=== PATIENT | female | born 1955 | race Caucasian/White ===

== ENCOUNTER 2020-04-30 03:05 | Outpatient (CLI) | payer BC, SELFPAY ==
[2020-04-30 17:56] LABS: SARS-CoV-2 RNA PCR Negative
== END 2020-04-30 03:06 | disposition home or self-care (01) ==
LOC: ANHCOVIDDT 03:05
PROVIDERS: PCP Family Medicine; Visit Provider Otolaryngology
DX: Z01.812 Encounter for preprocedural laboratory examination (principal); Z11.59 Encounter for screening for other viral diseases
CPT/HCPCS: 87635; C9803; U0003

== ENCOUNTER 2020-04-30 09:43 | Outpatient (CLI) | payer BC, SELFPAY ==
--- NOTE | 2020-04-30 09:46 | ECG_ITS ---
Measurements Intervals [place] Rate: 64 P: 8 NE: 160 QRS: -8 QRSD: 92 T: 17 QT: 361 QTc: 373 Interpretive Statements SINUS RHYTHM POOR R WAVE PROGRESSION, ANTERIOR LEADS BASELINE ARTIFACT- I, II, III, AVR, AVL, AVF BORDERLINE ECG Electronically Signed On 04-30-2020 10:01:15 CDT by Evan Menjivar D.O.
== END 2020-04-30 09:44 | disposition home or self-care (01) ==
LOC: ANHSURGERY 09:46
PROVIDERS: PCP Family Medicine; Visit Provider Otolaryngology
DX: E78.00 Pure hypercholesterolemia, unspecified (principal); R94.31 Abnormal electrocardiogram [ECG] [EKG]
CPT/HCPCS: 93005

== ENCOUNTER 2020-05-02 02:50 | Day surgery (SDC) | payer BC, SELFPAY ==
[2020-04-23 17:06] VITALS: BMI 36.6
--- NOTE | 2020-04-30 10:50 | P.HP_ITS ---
History of Present Illness History of Present Illness Consent: Risks, benefits, and alternatives have been discussed and questions answered. Patient agrees to proceed with procedure. Chief complaint: Chronic Hoarseness Narrative: Magalys Jarvis is a 64 year old female she has been hoarse for a long period of time indirect examination indirect examination in the office revealed redness of the vocal cords and a possible v Review of Systems Review of Systems: All systems reviewed & are unremarkable except as noted in HPI and below PMFSH Social History Social History Smoking packs per day: 2 Smoking cigarettes per day: 40.0 Years smoked: 8 Smoking pack-years: 16.00 Smoking status: Former smoker Tobacco type: cigarettes Second hand tobacco smoke exposure: No Smoking end date: 08/22/85 Additional smoking assessment comments: smoked 2 packs a day for 8 years then up to 4 packs a day in the end Alcohol intake: current Substance use: never Spiritual care concerns: No Meds Home Medications and Allergies Home Medications Medication Instructions Recorded Confirmed Type omeprazole 40 mg capsule,delayed 40 mg PO DAILY #90 cap 12/10/19 04/23/20 Rx release atorvastatin 20 mg tablet 20 mg PO DAILY 01/08/20 04/23/20 History bupropion HCl 300 mg 24 hr tablet, 300 mg PO QAM 01/08/20 04/23/20 History extended release multivitamin 1 tablet PO DAILY 04/22/20 04/23/20 History diclofenac sodium 75 mg PO DAILY 04/23/20 04/23/20 History fluticasone propionate 1 spray NASAL Q12H PRN 04/23/20 04/23/20 History escitalopram oxalate 10 mg tablet 10 mg PO DAILY #90 tablet 04/28/20 Rx Allergies Allergy/AdvReac Type Severity Reaction Status Date / Time No Known Allergies Allergy Mild Verified 04/23/20 16:45 Assessment and Plan Additional Plan plan is a microlaryngoscopy and possible biopsy
--- NOTE | 2020-05-01 08:13 | P.PNAN_ITS ---
Anes - Initial Pre Proc Eval Procedure: Operation Date: 05/02/20 08:15 Proposed Procedures p Microlaryngoscopy With Biopsy - Mihai Vinson MD Date/Time: 05/01/20 08:13 Surgeon: Mihai Vinson MD Pre Op Diagnosis: Chronic Hoarseness Patient Data Age: 64 Gender: F Height: 1.57 m Weight: 90.72 kg Allergies Allergy/AdvReac Type Severity Reaction Status Date / Time No Known Allergies Allergy Mild Verified 05/02/20 07:39 Home Medications Medication Instructions Recorded Confirmed Type omeprazole 40 mg capsule,delayed 40 mg PO DAILY #90 cap 12/10/19 05/02/20 Rx release atorvastatin 20 mg tablet 20 mg PO DAILY 01/08/20 05/02/20 History bupropion HCl 300 mg 24 hr tablet, 300 mg PO QAM 01/08/20 05/02/20 History extended release multivitamin 1 tablet PO DAILY 04/22/20 05/02/20 History diclofenac sodium 75 mg PO DAILY 04/23/20 05/02/20 History fluticasone propionate 1 spray NASAL Q12H PRN 04/23/20 05/02/20 History escitalopram oxalate 10 mg tablet 10 mg PO DAILY #90 tablet 04/28/20 05/02/20 Rx Patient hx anesthesia problems: none Family hx anesthesia problems: none PMFSH Social History Social History Smoking packs per day: 2 Smoking cigarettes per day: 40.0 Years smoked: 8 Smoking pack-years: 16.00 Smoking status: Former smoker Tobacco type: cigarettes Second hand tobacco smoke exposure: No Smoking end date: 08/22/85 Additional smoking assessment comments: smoked 2 packs a day for 8 years then up to 4 packs a day in the end Alcohol intake: current Alcohol use details: rarely drink maybe 1 drink per month Substance use: never Living arrangements: with family Spiritual care concerns: No Anes - Eval Final PreProcedure Day of Procedure 05/01/20 08:13 Patient weight: obese Heart: regular rate and rhythm Lungs: clear to auscultation and normal air movement Airway: Mallampati scale class II Neurological: alert and oriented Last oral intake: >/= 8 hours ASA classification: III Emergent: no Anesthetic plan: proceed Anesthesia type and monitoring: general ETT and standard monitoring Informed Consent: The patient's anesthetic plan and its attendant risks and benefits were discussed with the patient/family/POA. Questions were solicited and answers provided to the satisfaction of the patient/family/POA.
[2020-05-02] VITALS (8 sets, daily range): BP systolic 105–147; BP diastolic 57–79; PULSE 58–83; RESP 12–20; TEMP 36.3–36.4; O2SAT 93–97
--- NOTE | 2020-05-02 06:13 | WPDHPUPDATE1 ---
History and Physical Update Update Date/Time: 05/02/20 06:13 History and Physical has been reviewed, including an updated exam of the patient. There are NO changes in the patient's condition. Risks, benefits, and alternatives have been discussed and questions answered. Patient agrees to proceed with procedure.
[2020-05-02] MEDS: LACTATED RINGERS 1,000 ML 30 ML IV CONT (07:19)
--- NOTE | 2020-05-02 08:28 | PM.PROC ---
Procedure Note - Detailed Date of procedure: 05/02/20 Pre-op diagnosis: Chronic Hoarseness Post-op diagnosis: same Procedure performed: Patient was prepped and draped in a fashion general anesthesia 6.5 endotracheal tube was placed for general anesthesia laryngoscope was inches into the level above the tube evaluation of the cords was almost impossible with a tube in place a a glide scope was brought in the tube was removed and the cords were examined found to be normal no evidence of any lesions were seen a photograph taken and the procedure terminated Description of procedure: patient Sineff General anesthesia the laryngoscope was attached to this level of the glottis and with a 6.[address] of the visualization of the cords was impossible the tube was removed the glide scope placed in the cords are perfectly normal lesions were seen procedure was terminated Anesthesia: GLMA Surgeon: Mihai Vinson MD Estimated blood loss (mL): 5 Drains: No Packing: No Pathology: none sent Complications: No immediate complications Condition: stable Disposition: PACU
== END 2020-05-02 10:08 | disposition home or self-care (01) ==
PROVIDERS: PCP Family Medicine; Visit Provider Otolaryngology
PROC: 0CJS8ZZ Inspection of Larynx, Via Natural or Artificial Opening Endoscopic (ICD-10-PCS; CPT 31575; principal; 2020-05-02 08:15)
DX: R49.0 Dysphonia (principal); K21.9 Gastro-esophageal reflux disease without esophagitis; E78.2 Mixed hyperlipidemia; E53.9 Vitamin B deficiency, unspecified; F33.9 Major depressive disorder, recurrent, unspecified; E66.9 Obesity, unspecified; Z68.36 Body mass index [BMI] 36.0-36.9, adult; Z87.891 Personal history of nicotine dependence; Z79.899 Other long term (current) drug therapy
CPT/HCPCS: 31575; A9270; J0330; J1100; J2250; J2405; J2704; J3010; J7120

== ENCOUNTER → 2020-07-16 14:17 | Outpatient (CLI) | payer BC, SELFPAY ==
--- NOTE | ~2020-07-16 | CT_ITS ---
EXAMINATION: CT soft tissue neck w con EXAM DATE: 07/16/2020 14:51 INDICATION: Vocal cord bowing. Hoarseness voice. TECHNIQUE: Spiral CT of the neck was performed following intravenous injection of 75 mL Omnipaque 350 . Axial, coronal and sagittal images were reviewed. The dose-length product (DLP) for this examinat ion was 399.30 mGy-cm. The exposure was tailored according to patient size (auto mA exposure control ), and iterative reconstruction (ASIR) was used as additional dose reduction technique. There is no prior study for comparison. FINDINGS: The left vocal cord is midline, suggesting it could be paralyzed. The airway is otherwise u nremarkable. There is no mass in the aortopulmonary window. The thyroid gland is unremarkable. The submandibular and parotid glands are symmetric. There is no cervical lymphadenopathy. There are n o masses identified. The superior mediastinum is unremarkable. Parapharyngeal and pre-glottic fa t planes are preserved. The opacified vasculature is patent. The orbits are unremarkable. Visua lized sinuses and mastoid air cells are well aerated. The lung apices are clear. There is severe a rthritic change at the left C1-2 lateral mass articulation. Moderate midcervical disc disease. IMPRESSION: Midline left vocal cord suggesting paralysis without underlying mass identified. Reviewed, dictated and finalized at location A. IMPRESSION: Midline left vocal cord suggesting paralysis without underlying ma ss identified.
[2020-07-16 14:42] LABS: Estimated Glomerular Filt Rate > 60
== END ==
DX: R49.0 Dysphonia (principal)
CPT/HCPCS: 70491; Q9967

== ENCOUNTER → 2021-10-15 07:52 | Outpatient (CLI) | payer BC, SELFPAY ==
--- NOTE | ~2021-10-15 | MR_ITS ---
EXAMINATION: MR shoulder RT wo con DATE: 10/15/2021 08:33 INDICATION: Impingement syndrome of the right shoulder. TECHNIQUE: Magnetic resonance imaging (MRI) of the right shoulder was performed without intravenous c ontrast. Sequences included axial PD-weighted FS FSE, coronal oblique PD-weighted FS FSE, coronal obl ique T2-weighted FS FSE, sagittal PD-weighted FS FSE, and sagittal T1-weighted SE. COMPARISON: None. FINDINGS: Coracoacromial arch: The acromion undersurface is curved in morphology (type II). Small anterior subacromial spur and smal l amount of heterotopic ossification along the acromial insertion of the mildly thickened coracoacrom ial ligament. Moderate acromioclavicular osteoarthritis. Rotator cuff: Mild supraspinatus tendinopathy with small full-thickness tear along the superior facet footplate whi ch measures 6 mm AP and medial collateral. Moderate infraspinatus tendinopathy without discrete tear. The teres minor tendon is normal. Mild subscapularis tendinopathy without tear. Normal rotator cuff muscle bulk and signal. Biceps tendon, glenoid labrum and glenohumeral cartilage: Long head of the biceps tendon is normal. Glenoid labrum is normal. Glenohumeral cartilage is normal. Fluid: Physiologic amount of fluid in the glenohumeral joint and biceps tendon sheath. No loose osteochondra l bodies. Small amount of fluid in the subacromial/subdeltoid bursa likely representing fluid from th e glenohumeral joint space decompressing through the full-thickness rotator cuff tear defect. Bones: Normal marrow signal with no edema, fracture or pathologic marrow replacing process. IMPRESSION: 1. Mild to moderate rotator cuff tendinopathy with small full-thickness tear at the distal supraspina tus tendon. 2. Moderate acromioclavicular osteoarthritis. Reviewed, dictated and finalized at location A. DING SERVICES SUPERVISOR IMPRESSION: 1. Mild to moderate rotator cuff tendinopathy with small full-thickness tear at the distal supraspinatus tendon. 2. Moderate acromioclavicular osteoarthritis.
== END ==
PROVIDERS: PCP Family Medicine; Visit Provider Physician Assistant Surgical
DX: M75.41 Impingement syndrome of right shoulder (principal); M75.121 Complete rotator cuff tear or rupture of right shoulder, not specified as traumatic; M19.011 Primary osteoarthritis, right shoulder
CPT/HCPCS: 73221

== ENCOUNTER 2021-11-19 10:09 | Outpatient (CLI) | payer BC, SELFPAY ==
--- NOTE | 2021-11-19 | ECG_ITS ---
Measurements Intervals [place] Rate: 60 P: 0 TN: 173 QRS: -11 QRSD: 89 T: 18 QT: 379 QTc: 382 Interpretive Statements SINUS RHYTHM DELAYED PRECORDIAL R/S TRANSITION LOW QRS VOLTAGE IN PRECORDIAL LEADS BASELINE ARTIFACT- I, II, III, AVR, AVL, AVF BORDERLINE ECG Electronically Signed On 11-19-2021 14:17:45 PROGRAM EVALUATION CONSULTANT by Evan Menjivar D.O.
== END 2021-11-19 10:10 | disposition home or self-care (01) ==
LOC: ANHSURGERY 10:14
PROVIDERS: PCP Family Medicine; Visit Provider Orthopaedic Surgery
DX: E78.00 Pure hypercholesterolemia, unspecified (principal); Z01.818 Encounter for other preprocedural examination; R94.31 Abnormal electrocardiogram [ECG] [EKG]
CPT/HCPCS: 93005

== ENCOUNTER 2021-11-25 00:57 | Day surgery (SDC) | payer BC, SELFPAY ==
[2021-11-14 12:49] VITALS: BMI 35.7
--- NOTE | 2021-11-14 13:11 | PC.NURSE ---
Report to the Outpatient Waiting Room, entrance under the green pavilion located off [facility], at time _1130_ on date _11/25/21_. OR Time: _1:30_. - You will be asked a series of questions to screen for COVID 19 for your protection. - A mask is required within the hospital. - No visitors are allowed at this time. Preoperative COVID Testing Requirements: NONE Patients may have clear liquids (water, carbonated beverages, clear teas, apple juice) until 3 hours prior to surgery (1030 AM) with a maximum of 20 ounces. - No food from midnight until time of surgery Take the following medications with a SIP of water the morning of surgery: _BUPROPION, ESCITALOPRAM, NASAL SPRAY__ Medications to discontinue per DR. RODRIGUEZ - _ASPIRIN, DICLOFENAC 7 DAYS PRIOR TO SURGERY, LAST DOSE TO BE TAKEN ON 11/17/21 - per ANESTHESIA - MULTIVITAMIN 3 DAYS PRIOR TO SURGERY, LAST DOSE TO BE TAKEN ON 11/21/21_ Please no make-up, nail maldivian, hairspray, perfume, deodorant, or body powder the day of surgery. No jewelry (including any body piercings) or valuables the day of surgery, leave them at home. Please take a shower or bath the night before, or the morning of, surgery with an antibacterial soap. Wear comfortable, loose fitting clothing. - Jewelry must be removed prior to entering the operating room. Rings and piercings that are not removed may be cut off. - The hospital will not accept responsibility for valuables. - Please leave all valuables, including medications, at home the day of surgery. If you are going home after surgery, a licensed ambulance driver paramedic must drive you home. - NO public transportation without another adult. - We recommend that an adult stay with you for 24 hours following discharge. - We also recommend that you do not drive, make important decision, drink alcoholic beverages, or take any drugs that were not prescribed by your health care provider for at least 24 hours after your discharge time. Follow any additional instructions given to you from your surgeon. Telephone instructions given to ____PT and asked if any additional questions and then verbalized understanding. Patient advised to call surgeon office or pre surgery nurse liaisonIGNACIA [phone] if any additional questions.
[2021-11-25] VITALS (9 sets, daily range): BP systolic 111–183; BP diastolic 66–99; PULSE 65–95; RESP 13–18; TEMP 36.1–36.9; O2SAT 93–99; BMI 35.2
--- NOTE | 2021-11-25 07:18 | WPDHPUPDATE1 ---
History and Physical Update Update Date/Time: 11/25/21 07:18 History and Physical has been reviewed, including an updated exam of the patient. There are NO changes in the patient's condition. Risks, benefits, and alternatives have been discussed and questions answered. Patient agrees to proceed with procedure.
--- NOTE | 2021-11-25 11:35 | W.PM.PROC2 ---
Procedure Note - Detailed Date of Procedure 11/25/21 Pre-op Diagnosis complete rot. cuff tear rt shoulder, impingement Post-op Diagnosis other Procedure Performed 1. Arthroscopic rotator cuff repair 2. Arthroscopic subacromial decompression Surgeon Fei Tello MD Advisory Services Associate Corazon Shannon PA-C Anesthesia general and regional ( interscalene block) Findings Full thickness crescent tear with mild retraction. Medium to large size. Two tunnel rip stop repair. Good tissue quality. Partial delaminating subscapularis tear also repaired. Description of Procedure Physician child nutrition assistant, Corazon Shannon PA-C, required for surgery; including patient positioning, draping, arthroscopic camera operation, maintaining instrument position, suture retrieval, wound closure, and dressing and sling placement. Preoperative antibiotics were given. An interscalene block was administered in the preoperative area. The patient was bought brought to the operating room. A general anesthetic was administered. The patient was carefully positioned in the beach chair position. The head and neck were carefully positioned. The non operative extremity was also carefully positioned. The shoulder was prepped and draped in the usual sterile fashion. Examination was performed. Standard posterior and anterior arthroscopic portals were established. Inflow achieved with the arthroscopic pump using saline and epinephrine. The glenohumeral joint was carefully inspected. There was a partial delaminating tear of the subscapularis. This was repaired using a single, double loaded, 2.8mm Piton anchor at the lesser tuberosity with simple sutures. The biceps showed degenerative fraying of the superior labrum and a Enterprise complex. Attention was turned to the subacromial space. A complete bursectomy was performed. The rotator cuff and footprint were lightly debrided. A modest acromioplasty was performed. The tear configuration was carefully assessed. At this point, 2 tunnels were created at the rotator cuff. The ArthroTunneler technique was utilized. Three sutures were passed through each tunnel. All sutures were then passed through the cuff tissue. The sutures were tied arthroscopically. The arthroscopic instruments were removed. The wounds were closed with 3-0 Monocryl subcuticular suture and steri strips. There were no complications. A sling was applied and the patient brought to the recovery room. Implants Piton metal suture anchor, Albert (Tornier). Estimated Blood Loss 10 Pathology none sent Complications No immediate complications Condition stable Disposition PACU
--- NOTE | 2021-11-25 11:54 | WPDANESEPPF ---
Anes - Initial Pre Proc Eval Procedure: Operation Date: 11/25/21 13:30 Proposed Procedures p Arthroscopic Rotator Cuff Repair Right Shoulder with Subacromial Decompression - Fei Tello MD Date/Time: 11/25/21 11:54 Surgeon: Fei Tello MD Pre Op Diagnosis: complete rot. cuff tear rt shoulder, impingement Patient Data Age: 66 Gender: F Height: 1.57 m Weight: 87.2 kg Last Vital Signs Temp 36.9 C 11/25/21 11:49 Pulse 79 11/25/21 11:49 Resp 18 11/25/21 11:49 BP 111/75 11/25/21 11:49 Pulse Ox 99 11/25/21 11:49 Allergies Allergy/AdvReac Type Severity Reaction Status Date / Time bee venom protein (honey bee) AdvReac Anaphylaxis Verified 11/25/21 11:51 Home Medications Medication Instructions Recorded Confirmed Type multivitamin 1 tablet PO QAM 04/22/20 11/25/21 History aspirin 81 mg tablet,delayed 81 mg PO QAM 01/06/21 11/25/21 History release bupropion HCl 150 mg 24 hr tablet, 150 mg PO QAM #30 tablet 06/22/21 11/25/21 Rx extended release fluticasone propionate 50 1 spray NASAL Q12H PRN #16 g 08/25/21 11/25/21 Rx mcg/actuation nasal spray,suspension diclofenac sodium 75 mg 75 mg PO BID #60 tablet 10/24/21 11/25/21 Rx tablet,delayed release atorvastatin 20 mg PO QAM 11/14/21 11/25/21 History epinephrine [EpiPen 2-Daryl] 0.3 mg IM ONCE PRN 11/14/21 11/25/21 History escitalopram oxalate 10 mg PO QAM 11/14/21 11/25/21 History omeprazole 40 mg PO QAM 11/14/21 11/25/21 History Patient hx anesthesia problems: none Family hx anesthesia problems: none Results Review: All pre-operative results and documents have been reviewed as part of the pre-operative evaluation. FORMERLY [facility], [facility] Past Medical History Medical History Ankle fracture GERD without esophagitis History of stress test Lumbar radiculopathy Mixed hyperlipidemia Obesity (BMI 30-39.9) Recurrent major depressive disorder, in partial remission Stung by yellow jacket Vitamin B deficiency Surgical History Surgical History History of bilateral tubal ligation History of laryngoscopy (~05/02/20) Hx of tonsillectomy Family History Family History Other Family history of lung cancer Social History Social History Smoking packs per day: 2 Smoking cigarettes per day: 40.0 Years smoked: 8 Smoking pack-years: 16.00 Smoking status: Former smoker Tobacco type: cigarettes Second hand tobacco smoke exposure: No Smoking end date: 08/22/85 Additional smoking assessment comments: smoked 2 packs a day for 8 years then up to 4 packs a day in the end Alcohol intake: current Alcohol use details: STATES MAYBE 1 DRINK/MONTH Substance use: never Substance use type: does not use Living arrangements: with family Spiritual care concerns: No Anes - Eval Final PreProcedure Day of Procedure 11/25/21 11:54 Patient weight: obese Heart: regular rate and rhythm Lungs: clear to auscultation Airway: Mallampati scale class II Neurological: alert and oriented Last oral intake: >/= 8 hours ASA classification: III Emergent: no Anesthetic plan: proceed Anesthesia type and monitoring: general ETT and standard monitoring Results Review: All pre-operative results and documents have been reviewed as part of the pre-operative evaluation. Informed Consent: The patient's anesthetic plan and its attendant risks and benefits were discussed with the patient/family/POA. Questions were solicited and answers provided to the satisfaction of the patient/family/POA.
[2021-11-25] MEDS: KETOROLAC 15 MG/ML VIAL (*BKC) IV PUSH (12:12)
[2021-11-25] MEDS: LACTATED RINGERS 1,000 ML 30 ML IV CONT ×2 (12:12→15:40)
[2021-11-25] MEDS: ACETAMINOPHEN 500 MG TABLET 1000 MG PO (12:12)
--- NOTE | 2021-11-25 13:29 | WPDANESPNB ---
Anes - Peripheral Nerve Block Date/Time: 11/25/21 13:29 I have discussed with the patient/family/POA the placement of a peripheral nerve block for post-operative pain management, including associated risks, benefits, complications, and side effects. Alternative methods of post-operative analgesia were detailed. Questions were solicited and answers provided to the satisfaction of the patient/family/POA. Time-Out: A pre-procedural Time-Out was completed immediately before starting the procedure and confirmed: Patient Identification, Site, Procedure, Patient Position and the Availability of Requisite Equipment. Clinical Indications: Acute post-operative pain management requested by the operative surgeon. Nerve Block Insertion Note Anes-nerve block: interscalene right Patient position: supine Needle: 22 gauge, stimulating, insulated echogenic needle. Needle length: 50 mm Technique: nerve stimulation lost at (mA) (0.4) and ultrasound Injectate: bupivacaine 0.5% with epi 5 mcg/ml (30) and dexamethasone (mg) (8) Observations: tolerated well Complications: none Procedure start time:: 1320 Procedure end time:: 132
[2021-11-25] MEDS: ceFAZolin 2 GM/D5W 50 ML 2 GM/50 ML BAG IVPB (13:31)
== END 2021-11-25 18:00 | disposition home or self-care (01) ==
PROVIDERS: PCP Family Medicine; Visit Provider Orthopaedic Surgery
PROC: (CPT 29805; principal; 2021-11-25 13:30)
DX: M75.121 Complete rotator cuff tear or rupture of right shoulder, not specified as traumatic (principal); M75.41 Impingement syndrome of right shoulder; G89.18 Other acute postprocedural pain; Z79.82 Long term (current) use of aspirin; K21.9 Gastro-esophageal reflux disease without esophagitis; E78.2 Mixed hyperlipidemia; E53.9 Vitamin B deficiency, unspecified; F33.41 Major depressive disorder, recurrent, in partial remission; Z87.891 Personal history of nicotine dependence; E66.9 Obesity, unspecified; Z68.35 Body mass index [BMI] 35.0-35.9, adult
CPT/HCPCS: 29827; 29826; 64415; A4565; A9270; C1713; J0330; J0690; J1100; J1885; J2250; J2370; J2405; J2704; J3010; J7120

== ENCOUNTER 2023-12-02 00:12 | Day surgery (SDC) | payer MEDICARE, SELFPAY ==
[2023-11-09 12:12] VITALS: BMI 34.9
--- NOTE | 2023-11-30 08:14 | SUR.PREOP ---
Patient called regarding upcoming procedure. Reviewed preop instructions, appointment times, and procedure prep.
--- NOTE | 2023-12-01 13:51 | PM.HPGS ---
History of Present Illness History of Present Illness Consent: Risks, benefits, and alternatives have been discussed and questions answered. Patient agrees to proceed with procedure. Chief complaint: Other fecal abnormalities Narrative: Magalys Jarvis is a 68 year old female Referred for colon cancer screening. Recent Cologuard test was positive. Her last colonoscopy was about 17 years ago. Review of Systems Review of Systems: All systems reviewed & are unremarkable except as noted in HPI and below PMFSH Past Medical History Medical History Ankle fracture GERD without esophagitis History of stress test Lumbar radiculopathy Mixed hyperlipidemia Obesity (BMI 30-39.9) Recurrent major depressive disorder, in partial remission Rotator cuff tear Stung by yellow jacket Vitamin B deficiency Surgical History Surgical History History of bilateral tubal ligation History of laryngoscopy (~05/02/20) Hx of tonsillectomy Family History Family History Other Family history of lung cancer Social History Social History Smoking packs per day: 2 Smoking cigarettes per day: 40.0 Years smoked: 8 Smoking pack-years: 16.00 Smoking status: Former smoker Tobacco type: cigarettes Second hand tobacco smoke exposure: No Smoking end date: 08/22/85 Additional smoking assessment comments: smoked 2 packs a day for 8 years then up to 4 packs a day in the end Alcohol intake: current Alcohol use details: STATES MAYBE 1 DRINK/MONTH Substance use: never Substance use type: does not use Lack of Transportation: No Lack of Food: Never True Current Housing: I Have Housing Concerned About Future Housing: No Difficulty Paying Gas/Electric Bills: No Difficulty Paying for Meds: No Currently Unemployed: No Education: High School Diploma/GED Difficulty w/ Childcare or Family Care: No Living arrangements: with family Occupation/Education: occupation Gender identity (if verbalized by the patient): Female Spiritual care concerns: No Agree to blood products: Yes Meds Home Medications and Allergies Home Medications Medication Instructions Recorded Confirmed Type multivitamin (Daily Multi-Vitamin 1 tablet PO QAM 04/22/20 11/09/23 History tablet) aspirin 81 mg tablet,delayed 81 mg PO QAM 01/06/21 11/09/23 History release (Adult Aspirin Regimen) cyclobenzaprine 10 mg tablet 10 mg PO TID PRN muscle spasm #60 12/02/22 11/09/23 Rx tabs epinephrine 0.3 mg/0.3 mL 0.3 mg (0.3 mL) IM ONCE PRN BEE 12/02/22 11/09/23 Rx injection, auto-injector (EpiPen STING #2 ea 2-Daryl) escitalopram oxalate 10 mg tablet 10 mg PO QAM #90 tabs 12/02/22 11/09/23 Rx atorvastatin 20 mg tablet 20 mg PO QAM #90 tabs 03/24/23 11/09/23 Rx fluticasone propionate 50 1 spray intranasal Q12H PRN 04/28/23 11/09/23 Rx mcg/actuation nasal allergies #16 grams spray,suspension bupropion HCl 300 mg 24 hr tablet, 300 mg PO QAM #90 tabs 06/27/23 11/09/23 Rx extended release omeprazole 40 mg capsule,delayed 40 mg PO QAM #90 caps 09/30/23 11/09/23 Rx release diclofenac sodium 75 mg 75 mg PO BID #60 tabs 10/29/23 11/09/23 Rx tablet,delayed release Allergies Allergy/AdvReac Type Severity Reaction Status Date / Time bee venom protein (honey bee) AdvReac Anaphylaxis Verified 12/02/23 06:39 Exam Resp: Auscultation: clear to auscultation bilaterally Cardio: Rate: regular rate Rhythm: regular rhythm GI: GI Palp: Yes Soft to palpation and No Tenderness to palpation present (GI) Assessment and Plan Assessment and plan (1) Colon cancer screening: Code(s): Z12.11 - Encounter for screening for malignant neoplasm of colon Status: Acute Assessment and Plan: [place]
[2023-12-02 06:40] VITALS: BP 131/80; PULSE 75; RESP 16; TEMP 36.2; O2SAT 100
[2023-12-02] MEDS: LACTATED RINGERS 1,000 ML 150 ML IV CONT (06:49)
--- NOTE | 2023-12-02 07:07 | WPDANESEPPF ---
Anes - Initial Pre Proc Eval Procedure: Operation Date: 12/02/23 08:00 Proposed Procedures p Colonoscopy - Luc Mckeon MD Date/Time: 12/02/23 07:07 Surgeon: Luc Mckeon MD Pre Op Diagnosis: Other fecal abnormalities Patient Data Age: 68 Gender: F Height: 1.55 m Weight: 82.7 kg Last Vital Signs Temp 36.2 C L 12/02/23 06:40 Pulse 75 12/02/23 06:40 Resp 16 12/02/23 06:40 BP 131/80 12/02/23 06:40 Pulse Ox 100 12/02/23 06:40 O2 Del Method Room Air 12/02/23 06:40 Allergies Allergy/AdvReac Type Severity Reaction Status Date / Time bee venom protein (honey bee) AdvReac Anaphylaxis Verified 12/02/23 06:39 Home Medications Medication Instructions Recorded Confirmed Type multivitamin (Daily Multi-Vitamin 1 tablet PO QAM 04/22/20 11/09/23 History tablet) aspirin 81 mg tablet,delayed 81 mg PO QAM 01/06/21 11/09/23 History release (Adult Aspirin Regimen) cyclobenzaprine 10 mg tablet 10 mg PO TID PRN muscle spasm #60 12/02/22 11/09/23 Rx tabs epinephrine 0.3 mg/0.3 mL 0.3 mg (0.3 mL) IM ONCE PRN BEE 12/02/22 11/09/23 Rx injection, auto-injector (EpiPen STING #2 ea 2-Daryl) escitalopram oxalate 10 mg tablet 10 mg PO QAM #90 tabs 12/02/22 11/09/23 Rx atorvastatin 20 mg tablet 20 mg PO QAM #90 tabs 03/24/23 11/09/23 Rx fluticasone propionate 50 1 spray intranasal Q12H PRN 04/28/23 11/09/23 Rx mcg/actuation nasal allergies #16 grams spray,suspension bupropion HCl 300 mg 24 hr tablet, 300 mg PO QAM #90 tabs 06/27/23 11/09/23 Rx extended release omeprazole 40 mg capsule,delayed 40 mg PO QAM #90 caps 09/30/23 11/09/23 Rx release diclofenac sodium 75 mg 75 mg PO BID #60 tabs 10/29/23 11/09/23 Rx tablet,delayed release Patient hx anesthesia problems: none Family hx anesthesia problems: none Results Review: All pre-operative results and documents have been reviewed as part of the pre-operative evaluation. [facility] Past Medical History Medical History Ankle fracture GERD without esophagitis History of stress test Lumbar radiculopathy Mixed hyperlipidemia Obesity (BMI 30-39.9) Recurrent major depressive disorder, in partial remission Rotator cuff tear Stung by yellow jacket Vitamin B deficiency Surgical History Surgical History History of bilateral tubal ligation History of laryngoscopy (~05/02/20) Hx of tonsillectomy Family History Family History Other Family history of lung cancer Social History Social History Smoking packs per day: 2 Smoking cigarettes per day: 40.0 Years smoked: 8 Smoking pack-years: 16.00 Smoking status: Former smoker Tobacco type: cigarettes Second hand tobacco smoke exposure: No Smoking end date: 08/22/85 Additional smoking assessment comments: smoked 2 packs a day for 8 years then up to 4 packs a day in the end Alcohol intake: current Alcohol use details: STATES MAYBE 1 DRINK/MONTH Substance use: never Substance use type: does not use Lack of Transportation: No Lack of Food: Never True Current Housing: I Have Housing Concerned About Future Housing: No Difficulty Paying Gas/Electric Bills: No Difficulty Paying for Meds: No Currently Unemployed: No Education: High School Diploma/GED Difficulty w/ Childcare or Family Care: No Living arrangements: with family Occupation/Education: occupation Gender identity (if verbalized by the patient): Female Spiritual care concerns: No Agree to blood products: Yes Anes - Eval Final PreProcedure Day of Procedure 12/02/23 07:07 Patient weight: obese Heart: regular rate and rhythm Lungs: clear to auscultation Airway: Mallampati scale class II Neurological: alert and oriented Last oral intake: >/= 8 hour
[2023-12-02 08:44] VITALS: BP 128/61; PULSE 74; RESP 17; O2SAT 100
[2023-12-02 08:54] VITALS: BP 139/72; PULSE 72; RESP 16; O2SAT 95
[2023-12-02 09:04] VITALS: BP 157/90; PULSE 69; RESP 15; O2SAT 100
== END 2023-12-02 09:09 | disposition home or self-care (01) ==
PROVIDERS: PCP Family Medicine; Visit Provider Internal Medicine Gastroenterology
PROC: 0DJD8ZZ Inspection of Lower Intestinal Tract, Via Natural or Artificial Opening Endoscopic (ICD-10-PCS; CPT 45378; principal; 2023-12-02 08:00)
DX: Z12.11 Encounter for screening for malignant neoplasm of colon (principal); R19.5 Other fecal abnormalities; K57.30 Diverticulosis of large intestine without perforation or abscess without bleeding; K21.9 Gastro-esophageal reflux disease without esophagitis; E78.2 Mixed hyperlipidemia; E53.9 Vitamin B deficiency, unspecified; Z87.891 Personal history of nicotine dependence
CPT/HCPCS: G0121; J2704; J7120

== ENCOUNTER 2024-03-08 09:35 | Outpatient (CLI) | payer MEDICARE, SELFPAY ==
--- NOTE | ~2024-03-08 | XR_ITS ---
Lumbosacral Spine: AP, oblique, and lateral views Clinical History: Pain COMPARISON: 11/10/2005 Findings: The normal lordotic curve is maintained. No fracture evident. 12 mm anterolisthesis of L4 o [place] L5 is present. There is moderate to advanced degenerative disc narrowing throughout the lumbar sp ine, worst at L4-L5. There is severe facet arthropathy from L3 through S1. There is moderate facet ar thropathy at the upper lumbar spine. The sacroiliac joints are normally outlined. Impression: Severe degenerative spondylosis, as above. 12 mm anterolisthesis of L4 over L5. Reviewed, dictated and finalized at location M. Impression: Severe degenerative spondylosis, as above. 12 mm anterolisthesis of L4 over L5.
== END 2024-03-08 09:36 ==
PROVIDERS: PCP Family Medicine; Visit Provider Family Medicine
DX: M47.896 Other spondylosis, lumbar region (principal); M43.16 Spondylolisthesis, lumbar region
CPT/HCPCS: 72110

== ENCOUNTER 2024-03-22 15:30 | Outpatient (CLI) | payer MEDICARE, SELFPAY ==
--- NOTE | ~2024-03-22 | US_ITS ---
RIGHT LOWER EXTREMITY VENOUS ULTRASOUND Ordering provider: Alexia Dewitt MD History: . M79.604 - Pain in right leg . Comparison: None. FINDINGS: --COMMON FEMORAL: Patent and free of thrombus. Normal compressibility, phasic flow and augmentation. --PROXIMAL SUPERFICIAL FEMORAL: Patent and free of thrombus. Normal compressibility, phasic flow and augmentation. --DISTAL SUPERFICIAL FEMORAL: Patent and free of thrombus. Normal compressibility, phasic flow and au gmentation. --POPLITEAL: Patent and free of thrombus. Normal compressibility, phasic flow and augmentation. --POSTERIOR TIBIAL: Patent and free of thrombus. Normal compressibility, phasic flow and augmentation . IMPRESSION: Negative right lower extremity venous US. No deep vein thrombosis. Reviewed, dictated and finalized at location A.
== END 2024-03-22 15:31 | disposition home or self-care (01) ==
PROVIDERS: PCP Family Medicine; Visit Provider Family Medicine
DX: M79.604 Pain in right leg (principal)
CPT/HCPCS: 93971

== ENCOUNTER 2024-03-29 08:31 | Outpatient (CLI) | payer MEDICARE, SELFPAY ==
--- NOTE | ~2024-03-29 | XR_ITS ---
EXAMINATION: XR hand RT min 3V, XR hand LT min 3V DATE: 03/29/2024 10:08 INDICATION: Osteoarthritis at the bilateral first carpal metacarpal joints TECHNIQUE: 1. Posteroanterior, oblique and lateral views of the left hand were obtained. 2. Posteroanterior, oblique and lateral views of the right hand were obtained. COMPARISON: None. FINDINGS: There is mild pulmonary subluxation at the bilateral second and third metacarpophalangeal joints. Ali gnment is otherwise normal. No fracture. There is polyarticular osteoarthritis at the bilateral hands and wrists, severe at the right third metacarpophalangeal joint and at the radioscaphoid articulatio n of the left wrist joint, moderate severity at the bilateral first carpal metacarpal, and right seco nd and left second and fourth metacarpophalangeal joints and at multiple interphalangeal joints with distal predominance. Mild osteoarthritis at the majority the remaining joints at the bilateral hands and wrists. There are multiple scattered juxta-articular lucencies with sclerotic margins most promin ent at the distal left radius and ulna, left scaphoid, bilateral lunate bones and at the head of the right third metacarpal. This could represent degenerative subchondral cysts or chronic erosions. Subt le chondrocalcinosis at the bilateral trigone fibrocartilage complex and at the bilateral third metac arpophalangeal joints. IMPRESSION: 1. Moderate to severe polyarticular osteoarthritis at the bilateral hands and wrists. The distributio n of the osteoarthritis with atypical predominance at the second and third metacarpophalangeal joints along with the presence of chondrocalcinosis and multiple chronic appearing erosions suggests possib ility of secondary osteoarthritis related to calcium pyrophosphate deposition (CPPD) disease. Reviewed, dictated and finalized at location B. IMPRESSION: 1. Moderate to severe polyarticular osteoarthritis at the bilateral hands and w rists. The distribution of the osteoarthritis with atypical predominance at the second and third metacarpophalangeal joints along with the presence of chondro calcinosis and multiple chronic appearing erosions suggests possibility of seco ndary osteoarthritis related to calcium pyrophosphate deposition (CPPD) disease .
== END 2024-03-29 08:32 | disposition home or self-care (01) ==
LOC: ANHIMG 08:33
PROVIDERS: Visit Provider Plastic Surgery
DX: M18.9 Osteoarthritis of first carpometacarpal joint, unspecified (principal); M19.041 Primary osteoarthritis, right hand; M19.042 Primary osteoarthritis, left hand; M19.031 Primary osteoarthritis, right wrist; M19.032 Primary osteoarthritis, left wrist
CPT/HCPCS: 73130

== ENCOUNTER 2024-04-17 14:55 | Outpatient (CLI) | payer MEDICARE, SELFPAY ==
--- NOTE | ~2024-04-17 | MR_ITS ---
MRI of the lumbar spine Clinical History: Radiculopathy Technique: Axial T2-weighted images, and sagittal T1-weighted, T2-weighted, and T2 fat-sat images wer e acquired. COMPARISON: 12/22/2016 Findings: Stable mild chronic loss of height of L1. No acute fracture seen. There is 5 mm retrolisthe sis of L1 over L2. There is 3 mm retrolisthesis of L2 over L3. There is 9 mm anterolisthesis of L4 ov er L5. No suspicious bone marrow signal abnormality seen. At L1-L2, there is advanced degenerative disc narrowing. There is mild disc bulge with moderate to ad vanced facet arthropathy. There is no destiny central canal stenosis. There is moderate to advanced frandy ateral neural foraminal narrowing. At L2-L3, there is advanced degenerative disc narrowing. There is diffuse disc bulge and severe facet arthropathy, with moderate to severe spinal canal stenosis/thecal sac compression. There is severe b ilateral neural foraminal compromise. At L3-L4, there is advanced degenerative disc narrowing. Disc bulge and severe facet arthropathy resu lt in severe spinal canal stenosis/thecal sac compression. There is severe right neural foraminal lila rowing, and moderate to severe left neural foraminal narrowing. At L4-L5, there is diffuse disc bulge/uncovering with severe facet arthropathy, which result in sever e spinal canal stenosis/thecal sac compression. There is severe bilateral neural foraminal compromise . At L5-S1, there is minimal disc bulge with severe facet arthropathy. No central canal stenosis. Neura l foramina are preserved. Paravertebral soft tissues are unremarkable. Impression: Severe degenerative spondylosis from L1 through L5, as detailed above. There is multilevel severe spi nal canal stenosis and advanced neural foraminal narrowing. 9 mm anterolisthesis of L5 over S1. 5 mm retrolisthesis of L1 over L2. 3 mm retrolisthesis of L2 over L3. Reviewed, dictated and finalized at location . Impression: Severe degenerative spondylosis from L1 through L5, as detailed above. There is multilevel severe spinal canal stenosis and advanced neural foraminal narrowin g. 9 mm anterolisthesis of L5 over S1. 5 mm retrolisthesis of L1 over L2. 3 mm retrolisthesis of L2 over L3.
== END 2024-04-17 14:56 ==
LOC: MICIMG 14:56
PROVIDERS: Visit Provider Family Medicine
DX: M51.36 Other intervertebral disc degeneration, lumbar region (principal); M48.061 Spinal stenosis, lumbar region without neurogenic claudication; M43.16 Spondylolisthesis, lumbar region; M43.17 Spondylolisthesis, lumbosacral region
CPT/HCPCS: 72148

== ENCOUNTER 2024-11-04 11:28 | Emergency (ER) | payer MEDICARE, SELFPAY ==
--- NOTE | ~2024-11-04 | US_ITS ---
EXAMINATION: US venous doppler LE RT DATE: 11/04/2024 12:43 INDICATION: Right lower limb pain. TECHNIQUE: Grayscale ultrasound images without and with compression and Doppler ultrasound images of the right lower extremity veins were obtained. COMPARISON: Ultrasound 03/22/2024 FINDINGS: The visualized portions of right common femoral vein, profunda (deep) femoral vein, femoral vein, pop liteal vein, peroneal veins, posterior tibial veins, and greater saphenous vein outflow are patent. IMPRESSION: 1. No deep venous thrombosis. Reviewed, dictated and finalized at location A. T PLEATER
--- NOTE | ~2024-11-04 | XR_ITS ---
EXAM: XR knee RT 3V DATE: 11/04/2024 14:25 HISTORY: posterior knee pain . COMPARISON: 05/03/2024, images only. FINDINGS: Normal mineralization. No fracture or dislocation. No lytic or blastic lesion. Tricompartm ental osteoarthritis, moderate-severe in the medial compartment. Small knee joint effusion. No erosio n or periosteal change. Soft tissues within normal limits. IMPRESSION: No acute osseous finding in the right knee. Reviewed, dictated and finalized at location K. RER SCREEN MEASURER AND TRIMMER
--- OUTSIDE RECORDS SUMMARY | 2024-11-04 11:31 | XMS_ITS | Clinical Summary ---
Author Organization [facility] Address [address] [place] [address] Care Team Providers Care Compliance Assistant Name Role Phone Alexia Dewitt MD Primary Care Provider [phone] Source Comments [facility],non-owned Affiliates and Associated Physician Practices is amultiple site organization consisting of ambulatory clinics and hospital sitesin [place], [place], [place] and [place]. This disclosure is being madepursuant to the Care Everywhere program and may not contain all information available regarding this patient. Last updated 18.[facility] Allergies No known active allergies Medications * Be aware that medications may not be up to date on this document. Alwaysverify current medications with the patient. Medication Sig Dispensed Refills Start Date End Date Status omeprazole (PRILOSEC) 40 MG capsule Take 40 mg by mouth once daily 06/16/2020 Active fluticasone propionate (FLONASE) 50 MCG/ACT nasal spray [place] 1 spray into each nostril 2 times daily 02/09/2020 Active escitalopram (LEXAPRO) 10 MG tablet Take 10 mg by mouth once daily 07/03/2020 Active atorvastatin (LIPITOR) 20 MG tablet Take 20 mg by mouth once daily 05/19/2020 Active buPROPion XL 24hr (WELLBUTRIN-XL) 300 MG tablet Take 300 mg by mouth once daily 06/12/2020 Active diclofenac sodium EC (VOLTAREN) 75 MG tablet Take 75 mg by mouth once daily 06/19/2020 Active Multiple Vitamins-Minerals (MULTIVITAMIN ADULTS 50+ PO) Take 1 tablet by mouth once daily Active nitrofurantoin monohyd macro crystals (MACROBID) 100 MG capsule Take 1 capsule by mouth 2 times daily 08/04/2020 Active Active Problems No known active problems Family History Medical History Relation Name Comments CAD (Coronary Artery Disease) Father Glaucoma Father Hemophilia Father Lung Disease Father Mesothelioma Thyroid Disease Father CAD (Coronary Artery Disease) Mother Cancer - Lung Mother Relation Name Status Comments Father Mother Social History Tobacco Use Types Packs/Day Years Used Date Smoking Tobacco: Former Cigarettes Q uit: 1982 Smokeless Tobacco: Never Alcohol Use Standard Drinks/Week Comments Yes 0 (1 standard drink = 0.6 oz pur e alcohol) social AUDIT-C Answer Date Recorded Q1: How often do you have a drink containing alc ohol? Monthly or less 07/04/2020 Average Number of Drinks Not on file 020 Frequency of Binge Drinking Not on file 10/2019 Sex and Gender Information Value Date Recorded Sex Assigned at Not on file Gender Identity Not on file Sexual Orientation Not on file Last Filed Vital Signs Vital Sign Reading Time Taken Comments Blood Pressure 135/70 11/14/2020 8:36 AM BOTTOM SPRAYER Pulse 65 11/14/2020 8:36 AM BOTTOM SPRAYER Temperature 36.8 ??C (98.2 ??F) 11/14/2020 8:36 AM CS T Respiratory Rate - - Oxygen Saturation 98% 03/22/2018 3:22 PM CDT Inhaled Oxygen Concentration - - Weight 86.2 kg (190 lb) 11/14/2020 8:36 AM BOTTOM SPRAYER Height 157.5 cm (5' 2 ) 11/14/2020 8:36 AM BOTTOM SPRAYER Body Mass Index 34.75 11/14/2020 8:36 AM BOTTOM SPRAYER Plan of Treatment Health Maintenance Due Date Last Done Comments BONE DENSITY TESTING 1955 COLOGUARD (AGES 45-75) - COL ON CA SCREENING 1956 COLON MONITORING 1956 COLONOSCOPY - COLON CA SCREENING 1956 CT COLONOGRAPHY - COLON CA SCREENING 1956 Colorectal Cancer Screening 1956 FIT - COLON CA SCREENING 1956 FLEX SIG - COLON CA SCREENING 1956 MAMMOGRAM 1956 HEPATITIS C SCREENING 04/28/1974 DTAP/TDAP/TD VACCINES (1 - Tdap) 1975 PNEUMOCOCCAL VACCINE 50+ (1 of 1 - PCV) 2006 ZOSTER VACCINE (1 of 2) 2006 SCREENING FOR DIABETES 03/22/2018 COVID-19 VACCINE (1 - 2023-2 5 season) 2024 INFLUENZA VACCINE (#1) 2024 DEPRESSION SCREENING 10/04/2024 Respiratory Syncytial Virus (RSV) Vaccine Pt: or over 60 yrs (1 - 1-dose 75+ series) 2031 HEPATITIS B VACCINE Aged Out No longe r eligible based on patient's age to complete this topic HIB VACCINE Aged Out No longer eligi ble based on patient's age to complete this topic HPV VACCINE Aged Out No longer eligi ble based on patient's age to complete this topic MENINGOCOCCAL (Group B) VACCINE Aged Out No longer eligible based on patient's age to complete this topic MENINGOCOCCAL VACCINE Aged Out No gabriele mono eligible based on patient's age to complete this topic Care Teams Compliance Assistant Relationship Specialty Start Date End Date Alexia Dewitt MD [address] [place], [place] [id number] PCP - General Family Medicine 03/22/18
--- OUTSIDE RECORDS SUMMARY | 2024-11-04 11:31 | XMS_ITS | Referral Summary ---
Author Organization [facility] Address [address] [place] [address] Care Team Providers Care Medicare Biller Name Role Phone Alexia Dewitt MD Primary Care Provider [phone] Source Comments [facility],non-owned Affiliates and Associated Physician Practices is amultiple site organization consisting of ambulatory clinics and hospital sitesin [place], [place], [place] and [place]. This disclosure is being madepursuant to the Care Everywhere program and may not contain all information available regarding this patient. Last updated 18.[facility] [employer] Allergies No known active allergies Medications * Be aware that medications may not be up to date on this document. Alwaysverify current medications with the patient. Medication Sig Dispensed Refills Start Date End Date Status omeprazole (PRILOSEC) 40 MG capsule Take 40 mg by mouth once daily 06/16/2020 Active fluticasone propionate (FLONASE) 50 MCG/ACT nasal spray [place] 1 spray into each nostril 2 times [...] Active Active Problems No known active problems Social History Tobacco Use Types Packs/Day Years Used Date Smoking Tobacco: Former Cigarettes Q uit: 1983 Smokeless Tobacco: Never Alcohol Use Standard Drinks/Week [...] Comments Blood Pressure 135/70 11/14/2020 8:36 AM ROBOTICS TECHNOLOGIST Pulse 65 11/14/2020 8:36 AM ROBOTICS TECHNOLOGIST Temperature 36.8 ??C (98.2 ??F) 11/14/2020 8:36 AM CS T Respiratory Rate - - Oxygen Saturation 98% 03/22/2018 3:22 PM CDT Inhaled Oxygen Concentration - - Weight 86.2 kg (190 lb) 11/14/2020 8:36 AM ROBOTICS TECHNOLOGIST Height 157.5 cm (5' 2 ) 11/14/2020 8:36 AM ROBOTICS TECHNOLOGIST Body Mass Index 34.75 11/14/2020 8:36 AM ROBOTICS TECHNOLOGIST Plan of Treatment Not on file Care Teams Medicare Biller Relationship Specialty Start Date End Date Alexia Dewitt MD [address] [place], [place] [id number] PCP - General Family Medicine 03/22/18
--- OUTSIDE RECORDS SUMMARY | 2024-11-04 11:31 | XMS_ITS | Patient Health Summary ---
Author Organization [facility] Address [address] [address] Care Team Providers Care Multigraph Operator Name Role Phone Alexia Dewitt MD Primary Care Provider [phone] Note from [facility],non-owned Affiliates and Associated Physician Practices is amultiple site organization consisting of ambulatory clinics and hospital sitesin [place], [place], [place] and [place]. This disclosure is being madepursuant to the Care Everywhere program and may not contain all information available regarding this patient. Last updated 18.[facility] Allergies No known active allergies Medications * Be aware that medications may not be up to date on this document. Alwaysverify current medications with the patient. * omeprazole (PRILOSEC) 40 MG capsule(Started 06/16/2020) Take 40 mg by mouth once daily * fluticasone propionate (FLONASE) 50 MCG/ACT nasal spray(Started 02/09/2020) [place] 1 spray into each nostril 2 times daily * escitalopram (LEXAPRO) 10 MG tablet(Started 07/03/2020) Take 10 mg by mouth once daily * atorvastatin (LIPITOR) 20 MG tablet(Started 05/19/2020) Take 20 mg by mouth once daily * buPROPion XL 24hr (WELLBUTRIN-XL) 300 MG tablet(Started 06/12/2020) Take 300 mg by mouth once daily * diclofenac sodium EC (VOLTAREN) 75 MG tablet(Started 06/19/2020) Take 75 mg by mouth once daily * Multiple Vitamins-Minerals (MULTIVITAMIN ADULTS 50+ PO) Take 1 tablet by mouth once daily * nitrofurantoin monohyd macro crystals (MACROBID) 100 MG capsule(Started 08/04/2020) Take 1 capsule by mouth 2 times daily Active Problems No known active problems Social [...] Comments Blood Pressure 135/70 11/14/2020 8:36 AM INDUSTRIAL MAINTENANCE INSTRUCTOR Pulse 65 11/14/2020 8:36 AM INDUSTRIAL MAINTENANCE INSTRUCTOR Temperature 36.8 ??C (98.2 ??F) 11/14/2020 8:36 AM CS T Respiratory Rate - - Oxygen Saturation 98% 03/22/2018 3:22 PM CDT Inhaled Oxygen Concentration - - Weight 86.2 kg (190 lb) 11/14/2020 8:36 AM INDUSTRIAL MAINTENANCE INSTRUCTOR Height 157.5 cm (5' 2 ) 11/14/2020 8:36 AM INDUSTRIAL MAINTENANCE INSTRUCTOR Body Mass Index 34.75 11/14/2020 8:36 AM INDUSTRIAL MAINTENANCE INSTRUCTOR Procedures * MA LARYNGOSCOPY,FLEX FIBER,DIAGNOSTIC(Performed 11/14/2020) Performed for Vocal cord bowing * MA LARYNGOSCOPY,INDIRECT,DX(Performed 08/08/2020) Performed for Vocal cord bowing * SARS-COV-2 (COVID-19) IN HOUSE(Performed 07/24/2020) Performed for Pre-op testing * MA LARYNGOSCOPY,FLEX FIBER,DIAGNOSTIC(Performed 07/04/2020) Performed for Hoarseness of voice Results * MA LARYNGOSCOPY,FLEX FIBER,DIAGNOSTIC (11/14/2020 8:56 AM INDUSTRIAL MAINTENANCE INSTRUCTOR) Narrative Betito Townsend MD - 11/14/2020 8:56 AM INDUSTRIAL MAINTENANCE INSTRUCTOR Betito Townsend MD ? 11/14/2020 ??9:07 AM Procedure Note Endoscopy Endoscopy Type: ??Laryngoscopy without stroboscopy 16834 Endoscope: Flexible 4mm Scope Anesthesia: Lidocaine 2% and Neosynephrine 1/2% (nasal) Procedure Details: The patient was sitting upright in a chair with the head in a slightly anterior sniffing position. The topical anesthesia was administered and then adequate time was allowed ??for an anesthetic effect. The endoscope was passed thru the nasal cavity with the tongue retracted anteriorly. The tip of the endoscope was positioned in the oropharynx which allowed a complete view of the base of tongue, vallecula, pyriform recesses, epiglottis, bilateral true and false vocal folds, the interarytenoid and post cricoid region, and the immediate subglottis. Findings: vocal cords move normally through the full range of motion. Thecords approximate well with no bowing. A symmetric mucosal wave. Condition: Stable. ??The patient tolerated this procedure with minimal to no discomfort. Complications: None I was present for the entirety of the procedure. Betito Townsend MD PROCEDURE/MINOR SURG ICAL ORDERABLES * MA LARYNGOSCOPY,INDIRECT,DX (08/08/2020 10:57 AM INDUSTRIAL MAINTENANCE INSTRUCTOR) Narrative Fatmata Carlisle - 08/08/2020 10:57 AM INDUSTRIAL MAINTENANCE INSTRUCTOR Fatmata Carlisle ? 08/08/2020 12:07 PM See procedure note in the progress note from this date. Betito Townsend MD PROCEDURE/MINOR SURG ICAL ORDERABLES * SARS-COV-2 (COVID-19) PRE-SURGICAL/PROCEDURE (07/24/2020 12:43 PM CDT) COVID-19 PCR Not detected Not detected 07/24/2020 7:26 PM CDT [facility] Microbiology SPECIMEN FROM NASOPHARYNGEAL STRUCTURE / Unknown Collection / Unknown 07/24/2020 12:43 PM CDT 07/24/2020 12:43 PM CDT Narrative [facility] - 07/24/2020 7:26 PM CDT This nucleic acid amplification assay performance was validated by [facility]. This test has been authorized by the Food and Drug administration (FDA)under an Emergency??Use Authorization (EUA). This test has been validated in accordance with the FDA's guidance document Policy for Diagnostic Testing in Laboratories Certified to perform High Complexity Testing under CLIA prior to Emergency Use Authorization for Coronavirus Disease-2019 during the Public Health Emergency issued on December 02, 2019. FDA independent review of this validation is pending. This test is only authorized for the duration of time the declaration that circumstances exist justifying the authorization of emergency use of in vitro diagnostic tests for detection of SARS-CoV-2 virus and/or diagnosis of COVID-19 infection under section 564(b)(1) of the Act, 21 U.S.C 360bbb-3 (b)(1), unless the authorization is terminated or revoked sooner. Fact Sheets for this EUA assay are available upon request. Betito Townsend MD LAB - MICROBIOLOGY O RDERABLES [facility] [address] [place], [place] [address], [facility] [phone] * MA LARYNGOSCOPY,FLEX FIBER,DIAGNOSTIC (07/04/2020 12:08 PM CDT) Narrative Fatmata Carlisle - 07/04/2020 12:08 PM CDT Fatmata Carlisle ? 07/04/2020 ??2:38 PM See procedure note in the progress note from this date. Betito Townsend MD PROCEDURE/MINOR SURG ICAL ORDERABLES Care Teams Multigraph Operator Relationship Specialty Start Date End Date Alexia Dewitt MD [address] [place] [address] PCP - General Family Medicine 03/22/18
[2024-11-04 11:59] VITALS: BP 109/73; PULSE 88; RESP 20; TEMP 36.6; O2SAT 100
--- OUTSIDE RECORDS SUMMARY | 2024-11-04 13:08 | XMS_ITS | Clinical Summary ---
Author Organization [facility] [employer] Address [address] [facility] [place] [address] Care Team Providers Care Dining Room Hostess Name Role Phone Alexia Dewitt MD Primary Care Provider [phone] Source Comments [facility],non-owned Affiliates and Associated Physician Practices is amultiple site organization consisting of ambulatory clinics and hospital sitesin [place], [place], [place] and [place]. This disclosure is being madepursuant to the Care Everywhere program and may not contain all information available regarding this patient. Last updated 18.[facility] [employer] Allergies No known active allergies Medications * Be aware that medications may not be up to date on this document. Alwaysverify current medications with the patient. Medication Sig Dispensed Refills Start Date End Date Status omeprazole (PRILOSEC) 40 MG capsule Take 40 mg by mouth once daily 06/16/2020 Active fluticasone propionate (FLONASE) 50 MCG/ACT nasal spray [place] 1 spray into each nostril 2 times [...] Comments Blood Pressure 135/70 11/14/2020 8:36 AM CONSTRUCTION SECRETARY Pulse 65 11/14/2020 8:36 AM CONSTRUCTION SECRETARY Temperature 36.8 ??C (98.2 ??F) 11/14/2020 8:36 AM CS T Respiratory Rate - - Oxygen Saturation 98% 03/22/2018 3:22 PM CDT Inhaled Oxygen Concentration - - Weight 86.2 kg (190 lb) 11/14/2020 8:36 AM CONSTRUCTION SECRETARY Height 157.5 cm (5' 2 ) 11/14/2020 8:36 AM CONSTRUCTION SECRETARY Body Mass Index 34.75 11/14/2020 8:36 AM CONSTRUCTION SECRETARY Plan of Treatment Health Maintenance Due Date [...] age to complete this topic Care Teams Dining Room Hostess Relationship Specialty Start Date End Date Alexia Dewitt MD [address] [place], [place] [id number] PCP - General Family Medicine 03/22/18
--- OUTSIDE RECORDS SUMMARY | 2024-11-04 13:08 | XMS_ITS | Patient Health Summary ---
Author Organization [facility] Address [address] [place] [address] Care Team Providers Care Geophysical Computer Name Role Phone Alexia Dewitt MD Primary Care Provider [phone] Note from [facility],non-owned Affiliates and Associated Physician Practices is amultiple site organization consisting of ambulatory clinics and hospital sitesin [place], [place], [place] and [place]. This disclosure is being madepursuant to the Care Everywhere program and may not contain all information available regarding this patient. Last updated 18.[facility] Allergies No known active allergies Medications * Be aware that medications may not be up to date on this document. Alwaysverify current medications with the patient. * omeprazole (PRILOSEC) 40 MG capsule(Started 06/16/2020) Take 40 mg by mouth once daily * fluticasone propionate (FLONASE) 50 MCG/ACT nasal spray(Started 02/09/2020) [place] 1 spray into each nostril 2 times [...] Comments Blood Pressure 135/70 11/14/2020 8:36 AM GEOLOGICAL MANAGER Pulse 65 11/14/2020 8:36 AM GEOLOGICAL MANAGER Temperature 36.8 ??C (98.2 ??F) 11/14/2020 8:36 AM CS T Respiratory Rate - - Oxygen Saturation 98% 03/22/2018 3:22 PM CDT Inhaled Oxygen Concentration - - Weight 86.2 kg (190 lb) 11/14/2020 8:36 AM GEOLOGICAL MANAGER Height 157.5 cm (5' 2 ) 11/14/2020 8:36 AM GEOLOGICAL MANAGER Body Mass Index 34.75 11/14/2020 8:36 AM GEOLOGICAL MANAGER Procedures * MD LARYNGOSCOPY,FLEX FIBER,DIAGNOSTIC(Performed 11/14/2020) Performed for Vocal cord bowing * MD LARYNGOSCOPY,INDIRECT,DX(Performed 08/08/2020) Performed for Vocal cord bowing * SARS-COV-2 (COVID-19) IN HOUSE(Performed 07/24/2020) Performed for Pre-op testing * MD LARYNGOSCOPY,FLEX FIBER,DIAGNOSTIC(Performed 07/04/2020) Performed for Hoarseness of voice Results * MD LARYNGOSCOPY,FLEX FIBER,DIAGNOSTIC (11/14/2020 8:56 AM GEOLOGICAL MANAGER) Narrative Betito Townsend MD - 11/14/2020 8:56 AM GEOLOGICAL MANAGER Betito Townsend MD ? 11/14/2020 ??9:07 AM Procedure Note Endoscopy Endoscopy Type: ??Laryngoscopy without stroboscopy 12032 Endoscope: Flexible 4mm Scope Anesthesia: Lidocaine 2% [...] Townsend MD PROCEDURE/MINOR SURG ICAL ORDERABLES * MD LARYNGOSCOPY,INDIRECT,DX (08/08/2020 10:57 AM GEOLOGICAL MANAGER) Narrative Fatmata Carlisle - 08/08/2020 10:57 AM GEOLOGICAL MANAGER Fatmata Carlisle ? 08/08/2020 12:07 PM See procedure note in the progress note from this date. Betito Townsend MD PROCEDURE/MINOR SURG ICAL ORDERABLES * SARS-COV-2 (COVID-19) PRE-SURGICAL/PROCEDURE (07/24/2020 12:43 PM CDT) COVID-19 PCR Not detected Not detected 07/24/2020 7:26 PM CDT [facility] Microbiology SPECIMEN FROM NASOPHARYNGEAL STRUCTURE / Unknown Collection / Unknown 07/24/2020 12:43 PM CDT 07/24/2020 12:43 PM CDT Narrative [facility] - 07/24/2020 7:26 PM CDT This nucleic acid amplification assay performance was validated by [facility]. This test has been authorized [...] Townsend MD LAB - MICROBIOLOGY O RDERABLES [facility] [address] [place], [place] [address], [facility] [phone] * MD LARYNGOSCOPY,FLEX FIBER,DIAGNOSTIC (07/04/2020 12:08 PM CDT) Narrative Fatmata Carlisle - 07/04/2020 12:08 PM CDT Fatmata Carlisle ? 07/04/2020 ??2:38 PM See procedure note in the progress note from this date. Betito Townsend MD PROCEDURE/MINOR SURG ICAL ORDERABLES Care Teams Geophysical Computer Relationship Specialty Start Date End Date Alexia Dewitt MD [address] [place] [address] PCP - General Family Medicine 03/22/18
--- OUTSIDE RECORDS SUMMARY | 2024-11-04 13:08 | XMS_ITS | Referral Summary ---
Author Organization [facility] Address [address] [facility] [address] [facility] [place] [address] Care Team Providers Care Supervisor Detasseling Crew Name Role Phone Alexia Dewitt MD Primary Care Provider [phone] Source Comments [facility],non-owned Affiliates and Associated Physician Practices is amultiple site organization consisting of ambulatory clinics and hospital sitesin [place], [place], [place] and [place]. This disclosure is being madepursuant to the Care Everywhere program and may not contain all information available regarding this patient. Last updated 18.[facility] Allergies No known active allergies Medications * Be aware that medications may not be up to date on this document. Alwaysverify current medications with the patient. Medication Sig Dispensed Refills Start Date End Date Status omeprazole (PRILOSEC) 40 MG capsule Take 40 mg by mouth once daily 06/16/2020 Active fluticasone propionate (FLONASE) 50 MCG/ACT nasal spray [place] 1 spray into each nostril 2 times [...] Comments Blood Pressure 135/70 11/14/2020 8:36 AM ENGINE HEAD REPAIRER Pulse 65 11/14/2020 8:36 AM ENGINE HEAD REPAIRER Temperature 36.8 ??C (98.2 ??F) 11/14/2020 8:36 AM CS T Respiratory Rate - - Oxygen Saturation 98% 03/22/2018 3:22 PM CDT Inhaled Oxygen Concentration - - Weight 86.2 kg (190 lb) 11/14/2020 8:36 AM ENGINE HEAD REPAIRER Height 157.5 cm (5' 2 ) 11/14/2020 8:36 AM ENGINE HEAD REPAIRER Body Mass Index 34.75 11/14/2020 8:36 AM ENGINE HEAD REPAIRER Plan of Treatment Not on file Care Teams Supervisor Detasseling Crew Relationship Specialty Start Date End Date Alexia Dewitt MD [address] [place], [place] [id number] PCP - General Family Medicine 03/22/18
--- NOTE | 2024-11-04 13:46 | ED.GENADULT ---
HPI - General Adult General Chief complaint: Extremity Problem,Nontraumatic Stated complaint: R LEG PAIN NO INJURY Time Seen by Provider: 11/04/24 12:58 History of Present Illness HPI narrative: 69-year-old female presented to the emergency department for evaluation for right posterior knee pain. Patient states the pain has been bothering her intermittently over the last few weeks. Patient does report a prior history of low back pain with pain that manifests as knee pain. Patient also has history of osteoarthritis.. Patient the falls or injuries. Related Data Home Medications ?Medication ?Instructions ?Recorded ?Confirmed ?Last Taken ?Type aspirin 81 mg tablet,delayed 81 mg PO QAM 01/06/21 09/20/24 11/18/21 History release (Adult Aspirin Regimen) Allergies Allergy/AdvReac Type Severity Reaction Status Date / Time bee venom protein (honey bee) AdvReac Anaphylaxis Verified 11/04/24 12:09 Review of Systems Review of Systems: All systems reviewed & are unremarkable except as noted in HPI and below PMFSH Past Medical History Medical History Rotator cuff tear History of stress test Stung by yellow jacket Obesity (BMI 30-39.9) Ankle fracture GERD without esophagitis Lumbar radiculopathy Mixed hyperlipidemia Recurrent major depressive disorder, in partial remission Vitamin B deficiency Surgical History Surgical History History of laryngoscopy (~05/02/20) Hx of tonsillectomy History of bilateral tubal ligation Family History Family History Other Family history of lung cancer Social History Social History Smoking packs per day: 2 Smoking cigarettes per day: 40.0 Years smoked: 8 Smoking pack-years: 16.00 Smoking status: Former smoker Tobacco type: cigarettes Second hand tobacco smoke exposure: No Smoking end date: 08/22/85 Additional smoking assessment comments: smoked 2 packs a day for 8 years then up to 4 packs a day in the end Alcohol intake: current Alcohol use details: STATES MAYBE 1 DRINK/MONTH Substance use: never Substance use type: does not use Do You Feel Safe in your Home?: Yes Lack of Transportation: No Lack of Food: Never True Current Housing: I Have Housing Concerned About Future Housing: No Difficulty Paying Gas/Electric Bills: No Difficulty Paying for Meds: No Currently Unemployed: No Education: High School Diploma/GED Difficulty w/ Childcare or Family Care: No Living arrangements: with family Occupation/Education: occupation Gender identity (if verbalized by the patient): Female Spiritual care concerns: No Agree to blood products: Yes Exam Narrative: APPEARANCE: Well appearing, no pain, no distress, well-nourished. HEAD: normocephalic, atraumatic. EYES: PERRLA/EOMI, conjunctivae clear. NOSE: Normal no drainage EARS:TMS clear with good light reflex. THROAT: Pharynx clear, no exudate. NECK: Supple. No adenopathy, no masses. RESPIRATORY: Airway patent, respirations nonlabored. Clear to auscultation bilaterally, no rales, rhonchi, wheezing. CARDIOVASCULAR: Regular rate and rhythm without murmurs rubs or gallops. ABDOMINAL: Soft, nontender, nondistended, normal bowel sounds MUSCULOSKELETAL: Reproducible posterior right knee tenderness to palpation with no evidence cellulitis or shingles NEURO: Alert. Cranial nerves II through XII intact. Grossly intact SKIN: Warm, dry. Normal Color Course Vital Signs Vital signs: Vital Signs Temperature 97.8 F 11/04/24 11:59 Pulse Rate 88 11/04/24 11:59 Respiratory Rate 20 11/04/24 11:59 Blood Pressure 109/73 11/04/24 11:59 Pulse Oximetry 100 11/04/24 11:59 Temperature 97.8 F 11/04/24 11:59 Pulse Rate 88 11/04/24 11:59 Respiratory Rate 20 11/04/24 11:59 Blood Pressure 109/73 11/04/24 11:59 Pulse Oximetry 100 11/04/24 11:59 Medical Decision Making MDM Narrative Medical decision making narrative: 69-year-old female presents emergency department for evaluation for right posterior knee pain. Exam was concerning popliteal cyst. Ultrasound was negative for DVT. X-ray was negative for acute fracture dislocation. Patient will be provided medication for pain control. Patient was courage have close follow-up with Orthopedics. All questions concerns were addressed. Differential Diagnosis Differential Diagnosis: Knee fracture, knee contusion, DVT, Mckeon cyst Vital Signs Vital Signs: Vital Signs Temperature 97.8 F 11/04/24 11:59 Pulse Rate 88 11/04/24 11:59 Respiratory Rate 20 11/04/24 11:59 Blood Pressure 109/73 11/04/24 11:59 Pulse Oximetry 100 11/04/24 11:59 Temperature 97.8 F 11/04/24 11:59 Pulse Rate 88 11/04/24 11:59 Respiratory Rate 20 11/04/24 11:59 Blood Pressure 109/73 11/04/24 11:59 Pulse Oximetry 100 11/04/24 11:59 Imaging Data Radiologist's impression: Impressions Venous Doppler Study 11/04/24 12:51 IMPRESSION: 1. No deep venous thrombosis. Knee X-Ray 11/04/24 14:25 IMPRESSION: No acute osseous finding in the right knee. Discharge Plan Discharge Clinical Impression: Posterior knee pain Patient Disposition: Home, Self-Care Condition: Stable Instructions: Antibiotic Form, Mckeon Cyst (ED) Additional Instructions: You are able to take [place] with your nabumetone. Do not take Tylenol while you are taking [place] as both do contain acetaminophen. Have close follow-up with Orthopedics. If you have any worsening symptoms then please call or return to the emergency department. Patient Language: Azeri Prescriptions: New hydrocodone-acetaminophen 5-325 mg tablet 1 tablet PO Q12H PRN (Reason: pain) Qty: 14 0RF No Action aspirin [Adult Aspirin Regimen] 81 mg tablet,delayed release (DR/EC) 81 mg PO QAM epinephrine [EpiPen 2-Daryl] 0.3 mg/0.3 mL auto-injector 0.3 mg IM ONCE PRN (Reason: BEE STING) Qty: 2 0RF Rx Instructions: as a single dose escitalopram oxalate 10 mg tablet 10 mg PO QAM Qty: 90 3RF fluticasone propionate 50 mcg/actuation spray,suspension 1 spray NASAL Q12H PRN (Reason: allergies) Qty: 16 6RF Rx Instructions: administer into each nostril atorvastatin 20 mg tablet 20 mg PO QAM Qty: 90 1RF bupropion HCl 300 mg tablet extended release 24 hr 300 mg PO QAM Qty: 90 1RF nabumetone 500 mg tablet 500 mg PO BID Qty: 60 0RF omeprazole 40 mg capsule,delayed release(DR/EC) 40 mg PO QAM Qty: 90 1RF Follow-up/Referrals: Alexia Dewitt MD [Primary Care Provider] - Nhan Zaragoza MD [Physician] -
== END 2024-11-04 16:34 | disposition home or self-care (01) ==
PROVIDERS: Emergency Provider Emergency Medicine; PCP Family Medicine
DX: M25.561 Pain in right knee (principal); Z79.82 Long term (current) use of aspirin; E53.9 Vitamin B deficiency, unspecified; K21.9 Gastro-esophageal reflux disease without esophagitis; E78.2 Mixed hyperlipidemia; Z87.891 Personal history of nicotine dependence; M79.661 Pain in right lower leg
CPT/HCPCS: 73562; 93971; 99284

== ENCOUNTER 2024-11-22 12:07 | Outpatient (CLI) | payer MEDICARE, SELFPAY ==
--- OUTSIDE RECORDS SUMMARY | 2024-11-22 12:11 | XMS_ITS | Clinical Summary ---
Author Organization [facility] Address [address] [facility] [address] Care Team Providers Care Oil Rig Driller Name Role Phone Alexia Dewitt MD Primary Care Provider [phone] Source Comments [facility],non-owned Affiliates and Associated Physician Practices is amultiple site organization consisting of ambulatory clinics and hospital sitesin [place], [place], [place] and [place]. This disclosure is being madepursuant to the Care Everywhere program and may not contain all information available regarding this patient. Last updated 18.[facility] Allergies No known active allergies Medications * Be aware that medications may not be up to date on this document. Alwaysverify current medications with the patient. Medication Sig Dispensed Refills Start Date End Date Status omeprazole (PRILOSEC) 40 MG capsule Take 40 mg by mouth once daily 06/16/2020 Active fluticasone propionate (FLONASE) 50 MCG/ACT nasal spray [place] 1 spray into each nostril 2 times [...] Comments Blood Pressure 135/70 11/14/2020 8:36 AM SOCIAL MEDIA COORDINATOR Pulse 65 11/14/2020 8:36 AM SOCIAL MEDIA COORDINATOR Temperature 36.8 C (98.2 F) 11/14/2020 8:36 AM SOCIAL MEDIA COORDINATOR Respiratory Rate - - Oxygen Saturation 98% 03/22/2018 3:22 PM CDT Inhaled Oxygen Concentration - - Weight 86.2 kg (190 lb) 11/14/2020 8:36 AM SOCIAL MEDIA COORDINATOR Height 157.5 cm (5' 2 ) 11/14/2020 8:36 AM SOCIAL MEDIA COORDINATOR Body Mass Index 34.75 11/14/2020 8:36 AM SOCIAL MEDIA COORDINATOR Plan of Treatment Health Maintenance Due Date [...] age to complete this topic Care Teams Oil Rig Driller Relationship Specialty Start Date End Date Alexia Dewitt MD [address] [place] [address] PCP - General Family Medicine 03/22/18
--- OUTSIDE RECORDS SUMMARY | 2024-11-22 12:11 | XMS_ITS | Referral Summary ---
Author Organization [facility] Address [address] [place] [address] Care Team Providers Care Sailmaker Name Role Phone Alexia Dewitt MD Primary Care Provider [phone] Source Comments [facility],non-owned Affiliates and Associated Physician Practices is amultiple site organization consisting of ambulatory clinics and hospital sitesin [place], [place], [place] and [place]. This disclosure is being madepursuant to the Care Everywhere program and may not contain all information available regarding this patient. Last updated 18.[facility] Allergies No known active allergies Medications * Be aware that medications may not be up to date on this document. Alwaysverify current medications with the patient. Medication Sig Dispensed Refills Start Date End Date Status omeprazole (PRILOSEC) 40 MG capsule Take 40 mg by mouth once daily 06/16/2020 Active fluticasone propionate (FLONASE) 50 MCG/ACT nasal spray [place] 1 spray into each nostril 2 times [...] Comments Blood Pressure 135/70 11/14/2020 8:36 AM SENIOR LINUX SYSTEMS ENGINEER Pulse 65 11/14/2020 8:36 AM SENIOR LINUX SYSTEMS ENGINEER Temperature 36.8 C (98.2 F) 11/14/2020 8:36 AM SENIOR LINUX SYSTEMS ENGINEER Respiratory Rate - - Oxygen Saturation 98% 03/22/2018 3:22 PM CDT Inhaled Oxygen Concentration - - Weight 86.2 kg (190 lb) 11/14/2020 8:36 AM SENIOR LINUX SYSTEMS ENGINEER Height 157.5 cm (5' 2 ) 11/14/2020 8:36 AM SENIOR LINUX SYSTEMS ENGINEER Body Mass Index 34.75 11/14/2020 8:36 AM SENIOR LINUX SYSTEMS ENGINEER Plan of Treatment Not on file Care Teams Sailmaker Relationship Specialty Start Date End Date Alexia Dewitt MD [address] [place] [address] PCP - General Family Medicine 03/22/18
--- OUTSIDE RECORDS SUMMARY | 2024-11-22 12:11 | XMS_ITS | Patient Health Summary ---
Author Organization [facility] Address [address] [place] [address] Care Team Providers Care Workflow Developer Name Role Phone Alexia Dewtit MD Primary Care Provider [phone] Note from [facility],non-owned Affiliates and Associated Physician Practices is amultiple site organization consisting of ambulatory clinics and hospital sitesin [place], [place], [place] and [place]. This disclosure is being madepursuant to the Care Everywhere program and may not contain all information available regarding this patient. Last updated 18.[facility] Allergies No known active allergies Medications * Be aware that medications may not be up to date on this document. Alwaysverify current medications with the patient. * omeprazole (PRILOSEC) 40 MG capsule(Started 06/16/2020) Take 40 mg by mouth once daily * fluticasone propionate (FLONASE) 50 MCG/ACT nasal spray(Started 02/09/2020) [place] 1 spray into each nostril 2 times [...] Comments Blood Pressure 135/70 11/14/2020 8:36 AM ARMATURE CONNECTOR Pulse 65 11/14/2020 8:36 AM ARMATURE CONNECTOR Temperature 36.8 C (98.2 F) 11/14/2020 8:36 AM ARMATURE CONNECTOR Respiratory Rate - - Oxygen Saturation 98% 03/22/2018 3:22 PM CDT Inhaled Oxygen Concentration - - Weight 86.2 kg (190 lb) 11/14/2020 8:36 AM ARMATURE CONNECTOR Height 157.5 cm (5' 2 ) 11/14/2020 8:36 AM ARMATURE CONNECTOR Body Mass Index 34.75 11/14/2020 8:36 AM ARMATURE CONNECTOR Procedures * [place] LARYNGOSCOPY,FLEX FIBER,DIAGNOSTIC(Performed 11/14/2020) Performed for Vocal cord bowing * IL LARYNGOSCOPY,INDIRECT,DX(Performed 08/08/2020) Performed for Vocal cord bowing * SARS-COV-2 (COVID-19) IN HOUSE(Performed 07/24/2020) Performed for Pre-op testing * [place] LARYNGOSCOPY,FLEX FIBER,DIAGNOSTIC(Performed 07/04/2020) Performed for Hoarseness of voice Results * [place] LARYNGOSCOPY,FLEX FIBER,DIAGNOSTIC (11/14/2020 8:56 AM ARMATURE CONNECTOR) Betito Frias MD - 11/14/2020 8:56 AM ARMATURE CONNECTOR Betito Townsend MD 11/14/2020 9:07 AM Procedure Note Endoscopy Endoscopy Type: Laryngoscopy without stroboscopy [id number] Endoscope: Flexible 4mm Scope Anesthesia: Lidocaine 2% and Neosynephrine 1/2% (nasal) Procedure Details: The patient was sitting upright in a chair with the head in a slightly anterior sniffing position. The topical anesthesia was administered and then adequate time was allowed for an anesthetic effect. The endoscope was passed [...] bowing. A symmetric mucosal wave. Condition: Stable. The patient tolerated this procedure with minimal to no discomfort. Complications: None I was present for the entirety of the procedure. Betito Townsend MD PROCEDURE/MINOR SURG ICAL ORDERABLES * [place] LARYNGOSCOPY,INDIRECT,DX (08/08/2020 10:57 AM ARMATURE CONNECTOR) Narrative Fatmata Carlisle - 08/08/2020 10:57 AM ARMATURE CONNECTOR Fatmata Carlisle 08/08/2020 12:07 PM See procedure note in the progress note from this date. Betito Townsend MD PROCEDURE/MINOR SURG ICAL ORDERABLES * SARS-COV-2 (COVID-19) PRE-SURGICAL/PROCEDURE (07/24/2020 12:43 PM CDT) COVID-19 PCR Not detected Not detected 07/24/2020 7:26 PM CDT [facility] Microbiology SPECIMEN FROM NASOPHARYNGEAL STRUCTURE / Unknown Collection / Unknown 07/24/2020 12:43 PM CDT 07/24/2020 12:43 PM CDT Jcarlos [facility] - 07/24/2020 7:26 PM CDT This nucleic acid amplification assay performance was validated by [facility]. This test has been authorized by the Food and Drug administration (FDA)under an Emergency Use Authorization (EUA). This test has been validated [...] Townsend MD LAB - MICROBIOLOGY O RDERABLES [facility] [address] [place] [address], [facility] [phone] * [place] LARYNGOSCOPY,FLEX FIBER,DIAGNOSTIC (07/04/2020 12:08 PM CDT) Narrative Fatmata Carlisle - 07/04/2020 12:08 PM CDT Fatmata Carlisle 07/04/2020 2:38 PM See procedure note in the progress note from this date. Betito Townsend MD PROCEDURE/MINOR SURG ICAL ORDERABLES Care Teams Workflow Developer Relationship Specialty Start Date End Date Alexia Dewitt MD [address] [place] [address] PCP - General Family Medicine 03/22/18
--- NOTE | 2024-11-22 12:35 | ECG_ITS ---
Test Date: 2024-11-22 12:44:09 Measurements Intervals [place]le Rate: 67 P: 31 ND: 160 QRS: -8 QRSD: 94 T: 54 QT: 344 QTc: 364 Interpretive Statements SINUS RHYTHM DELAYED PRECORDIAL R/S TRANSITION LOW QRS VOLTAGE IN PRECORDIAL LEADS BORDERLINE ST ABNORMALITY- HIGH LATERAL LEADS BASELINE ARTIFACT- I, II, III, AVR, AVL, AVF, V5 BORDERLINE ECG No previous ECG available for comparison Electronically Signed On 11-22-2024 13:32:13 LINE WORKER by Evan Menjivar D.O.
== END 2024-11-22 12:08 | disposition home or self-care (01) ==
PROVIDERS: PCP Family Medicine; Visit Provider Anesthesiology
DX: R94.31 Abnormal electrocardiogram [ECG] [EKG] (principal); E78.2 Mixed hyperlipidemia
CPT/HCPCS: 93005

== ENCOUNTER 2024-11-29 00:45 | Day surgery (SDC) | payer MEDICARE, SELFPAY ==
[2024-11-15 13:01] VITALS: BMI 38.3
--- NOTE | 2024-11-15 13:20 | PC.NURSE ---
Report to the Outpatient Waiting Room, entrance under the green pavilion located off [facility], at time ___8:15AM____ on date ___11/29/24____. Planned Procedure Time: ___10:15AM .? Time changes happen often and if your time is changed the preop area will call you the afternoon before. - You and your visitor will be asked to self-screen and do not enter if you have any COVID symptoms. Please call surgeon if you need to reschedule. - A mask is optional within the hospital at this time. - No food from midnight until time of surgery and no smoking, or chewing tobacco (or any form of nicotine). No chewing gum, candy or mints PER ANESTHESIA. NOTHING TO EAT OR DRINK FOR 8 HRS PRE-OP PER DR POE- NOTHING AFTER 2:15 AM. Take only the following medications with a SIP of water on the morning of surgery: ___BUPROPION & ESCITALOPRAM DO NOT STOP ANY OF YOUR OTHER PRESCRIPTION MEDICATIONS PRIOR TO SURGERY EXCEPT THE FOLLOWING Hold all vitamins and supplements for 3 days per anesthesiologist LAST DOSE 11/25/24. Medications to discontinue per physician _HOLD ASPIRIN PER DR POE- PATIENT IS CALLING OFFICE TO CONFIRM HOLD TIME. Please no make-up, nail lao, hairspray, perfume, deodorant, or body powder the day of surgery.? No jewelry (including any body piercings) or valuables the day of surgery, leave them at home.? Please take a shower or bath the night before, or the morning of, surgery with an antibacterial soap.? Wear comfortable, loose fitting clothing.? - Jewelry must be removed prior to entering the operating room.? Rings and piercings that are not removed may be cut off. - The hospital will not accept responsibility for valuables.? - Please leave all valuables, including medications, at home the day of surgery. If you are going home after surgery, a licensed pack train driver must drive you home.? - NO public transportation without another adult if you receive anesthesia. - We recommend that an adult stay with you for 24 hours following discharge. - We also recommend that you do not drive, make important decision, drink alcoholic beverages, or take any drugs that were not prescribed by your health care provider for at least 24 hours after your discharge time. Follow any additional instructions given to you from your surgeon. Telephone instructions given to ____PATIENT and asked if any additional questions and then verbalized understanding. Patient advised to call surgeon office or pre surgery nurse liaison [phone] if any additional questions.
[2024-11-29] VITALS (8 sets, daily range): BP systolic 114–161; BP diastolic 54–91; PULSE 64–93; RESP 12–16; TEMP 36.5–36.7; O2SAT 95–100; BMI 37.0
--- NOTE | ~2024-11-29 | XR_ITS ---
EXAMINATION: XR surgery orthopedic DATE: 11/29/2024 10:54 INDICATION: Right basal joint arthroplasty TECHNIQUE: 3 fluoroscopic images of the right wrist were obtained during procedure performed by Dr. Bry walden. Radiologist was not present for the imaging or procedure. The amount of fluoroscopy time u sed during this procedure was 0.3 minutes. Total DAP was 1.84 cGycm^2 COMPARISON: None. FINDINGS: Initial image demonstrates a metallic probe projecting over and likely widening the first carpal meta carpal joint where there is severe osteoarthritis with subarticular cystlike changes at the base of t he first metacarpal. Subsequent images demonstrate resection of the trapezium with expected lucent ga s at the resection bed. Final image demonstrates metallic buttons at the radial aspect of the base of the first metacarpal at the ulnar side of the proximal metaphyseal region of the metacarpal likely f or and intervening tightrope type fixation. No fractures identified. Mild to moderate osteoarthritis at a few of the profiled interphalangeal joints. IMPRESSION: 1. Expected appearance during first carpometacarpal with trapezial resection and tightrope type fixat ion between the base of the first and second metacarpals. See procedure note for further detail. Reviewed, dictated and finalized at location B. ROLLS OPERATOR IMPRESSION: 1. Expected appearance during first carpometacarpal with trapezial resection an d tightrope type fixation between the base of the first and second metacarpals. See procedure note for further detail.
--- OUTSIDE RECORDS SUMMARY | 2024-11-29 00:48 | XMS_ITS | Patient Health Summary ---
Author Organization [facility] Address [address] [place] [address] Care Team Providers Care Manager Technology Name Role Phone Alexia Dewitt MD Primary Care Provider [phone] Note from [facility],non-owned Affiliates and Associated Physician Practices is amultiple site organization consisting of ambulatory clinics and hospital sitesin [place], [place] and [place]. This disclosure is being madepursuant to the Care Everywhere program and may not contain all information available regarding this patient. Last updated 18.[facility] Allergies No known active allergies Medications * Be aware that medications may not be up to date on this document. Alwaysverify current medications with the patient. * omeprazole (PRILOSEC) 40 MG capsule(Started 06/16/2020) Take 40 mg by mouth once daily * fluticasone propionate (FLONASE) 50 MCG/ACT nasal spray(Started 02/09/2020) [place] 1 spray into each nostril 2 times [...] Comments Blood Pressure 135/70 11/14/2020 8:36 AM DISEASE MANAGEMENT NURSE Pulse 65 11/14/2020 8:36 AM DISEASE MANAGEMENT NURSE Temperature 36.8 C (98.2 F) 11/14/2020 8:36 AM DISEASE MANAGEMENT NURSE Respiratory Rate - - Oxygen Saturation 98% 03/22/2018 3:22 PM CDT Inhaled Oxygen Concentration - - Weight 86.2 kg (190 lb) 11/14/2020 8:36 AM DISEASE MANAGEMENT NURSE Height 157.5 cm (5' 2 ) 11/14/2020 8:36 AM DISEASE MANAGEMENT NURSE Body Mass Index 34.75 11/14/2020 8:36 AM DISEASE MANAGEMENT NURSE Procedures * [place] LARYNGOSCOPY,FLEX FIBER,DIAGNOSTIC(Performed 11/14/2020) Performed for Vocal cord bowing * [place] LARYNGOSCOPY,INDIRECT,DX(Performed 08/08/2020) Performed for Vocal cord bowing * SARS-COV-2 (COVID-19) IN HOUSE(Performed 07/24/2020) Performed for Pre-op testing * [place] LARYNGOSCOPY,FLEX FIBER,DIAGNOSTIC(Performed 07/04/2020) Performed for Hoarseness of voice Results * [place] LARYNGOSCOPY,FLEX FIBER,DIAGNOSTIC (11/14/2020 8:56 AM DISEASE MANAGEMENT NURSE) Betito Frias MD - 11/14/2020 8:56 AM DISEASE MANAGEMENT NURSE Betito Townsend MD 11/14/2020 9:07 AM Procedure Note Endoscopy Endoscopy Type: Laryngoscopy without stroboscopy [id number] Endoscope: Flexible 4mm Scope Anesthesia: Lidocaine 2% [...] Townsend MD PROCEDURE/MINOR SURG ICAL ORDERABLES * [place] LARYNGOSCOPY,INDIRECT,DX (08/08/2020 10:57 AM DISEASE MANAGEMENT NURSE) Narrative Fatmata Carlisle - 08/08/2020 10:57 AM DISEASE MANAGEMENT NURSE Fatmata Carlisle 08/08/2020 12:07 PM See procedure note in the progress note from this date. Betito Townsend MD PROCEDURE/MINOR SURG ICAL ORDERABLES * SARS-COV-2 (COVID-19) PRE-SURGICAL/PROCEDURE (07/24/2020 12:43 PM CDT) COVID-19 PCR Not detected Not detected 07/24/2020 7:26 PM CDT [facility] Microbiology SPECIMEN FROM NASOPHARYNGEAL STRUCTURE / Unknown Collection / Unknown 07/24/2020 12:43 PM CDT 07/24/2020 12:43 PM CDT Jcarlos [facility] - 07/24/2020 7:26 PM CDT This nucleic acid amplification assay performance was validated by [facility]. This test has been [...] Townsend MD LAB - MICROBIOLOGY O RDERABLES [facility] [address] [place] [address], [facility] [phone] * [place] LARYNGOSCOPY,FLEX FIBER,DIAGNOSTIC (07/04/2020 12:08 PM CDT) Narrative Fatmata Carlisle - 07/04/2020 12:08 PM CDT Fatmata Carlisle 07/04/2020 2:38 PM See procedure note in the progress note from this date. Betito Townsend MD PROCEDURE/MINOR SURG ICAL ORDERABLES Care Teams Manager Technology Relationship Specialty Start Date End Date Alexia Dewitt MD [address] [place] [address] PCP - General Family Medicine 03/22/18
--- OUTSIDE RECORDS SUMMARY | 2024-11-29 00:48 | XMS_ITS | Referral Summary ---
Author Organization [facility] Address [address] [place] [address] Care Team Providers Care Superior Court Clerk Name Role Phone Alexia Dewitt MD Primary Care Provider [phone] Source Comments [facility],non-owned Affiliates and Associated Physician Practices is amultiple site organization consisting of ambulatory clinics and hospital sitesin [place], [place], [place] and [place]. This disclosure is being madepursuant to the Care Everywhere program and may not contain all information available regarding this patient. Last updated 18.[facility] [employer] Allergies No known active allergies Medications * Be aware that medications may not be up to date on this document. Alwaysverify current medications with the patient. Medication Sig Dispensed Refills Start Date End Date Status omeprazole (PRILOSEC) 40 MG capsule Take 40 mg by mouth once daily 06/16/2020 Active fluticasone propionate (FLONASE) 50 MCG/ACT nasal spray [place] 1 spray into each nostril 2 times [...] Comments Blood Pressure 135/70 11/14/2020 8:36 AM TRUCK BRACER Pulse 65 11/14/2020 8:36 AM TRUCK BRACER Temperature 36.8 C (98.2 F) 11/14/2020 8:36 AM TRUCK BRACER Respiratory Rate - - Oxygen Saturation 98% 03/22/2018 3:22 PM CDT Inhaled Oxygen Concentration - - Weight 86.2 kg (190 lb) 11/14/2020 8:36 AM TRUCK BRACER Height 157.5 cm (5' 2 ) 11/14/2020 8:36 AM TRUCK BRACER Body Mass Index 34.75 11/14/2020 8:36 AM TRUCK BRACER Plan of Treatment Not on file Care Teams Superior Court Clerk Relationship Specialty Start Date End Date Alexia Dewitt MD [address] [place] [address] PCP - General Family Medicine 03/22/18
--- OUTSIDE RECORDS SUMMARY | 2024-11-29 00:48 | XMS_ITS | Clinical Summary ---
Author Organization [facility] Address [address] [place] [address] Care Team Providers Care Equipment Operating Engineer Name Role Phone Alexia Dewitt MD Primary Care Provider [phone] Source Comments [facility],non-owned Affiliates and Associated Physician Practices is amultiple site organization consisting of ambulatory clinics and hospital sitesin [place], [place], [place] and [place]. This disclosure is being madepursuant to the Care Everywhere program and may not contain all information available regarding this patient. Last updated 18.[facility] Allergies No known active allergies Medications * Be aware that medications may not be up to date on this document. Alwaysverify current medications with the patient. Medication Sig Dispensed Refills Start Date End Date Status omeprazole (PRILOSEC) 40 MG capsule Take 40 mg by mouth once daily 06/16/2020 Active fluticasone propionate (FLONASE) 50 MCG/ACT nasal spray [place] 1 spray into each nostril 2 times [...] Comments Blood Pressure 135/70 11/14/2020 8:36 AM BOSS DYER Pulse 65 11/14/2020 8:36 AM BOSS DYER Temperature 36.8 C (98.2 F) 11/14/2020 8:36 AM BOSS DYER Respiratory Rate - - Oxygen Saturation 98% 03/22/2018 3:22 PM CDT Inhaled Oxygen Concentration - - Weight 86.2 kg (190 lb) 11/14/2020 8:36 AM BOSS DYER Height 157.5 cm (5' 2 ) 11/14/2020 8:36 AM BOSS DYER Body Mass Index 34.75 11/14/2020 8:36 AM BOSS DYER Plan of Treatment Health Maintenance Due Date [...] age to complete this topic Care Teams Equipment Operating Engineer Relationship Specialty Start Date End Date Alexia Dewitt MD [address] [place] [address] PCP - General Family Medicine 03/22/18
--- NOTE | 2024-11-29 07:02 | WPDHPUPDATE1 ---
History and Physical Update Update Date/Time: 11/29/24 07:02 Patient seen and examined in pre-operative holding area. No interval change in medical history or symptoms. Patient recalls previous discussion of benefits and alternatives to procedure. Continues to desire to proceed with right basal joint artrhoplasty. Reviewed procedure, post-op expectations and risks including but not limited to bleeding, infection, injury to tendon/nerve/vessel, decreased hand function, stiffness, RSD, no change or worsening of symptoms. I discussed the possible use of assistants and their participation in the case. Patient stated understanding and signed the consent form wishing to proceed.
--- NOTE | 2024-11-29 07:03 | P.OP_ITS ---
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 The patient signed the consent form. PROCEDURE IN DETAIL:The patient taken back to OR on the stretcher in supine position. Time out performed with anesthesia, surgeon and staff agreeing on patient's name site and surgery to be performed SCDs were placed on the lower extremities and inflated. A tourniquet was placed on {right} upper extremity and antibiotics given IV After anesthesia administered sedation I injected {6}cc 1%lido with epi and 0.5% marcaine plain at the operative site The?{right upper extremity}?was prepped and draped in sterile fashion the??{right upper extremity} was? exsanguinated with Esmarch bandage and tourniquet inflated to 250mmHg I proceeded with making a longitudinal incision over the trapezium between the 1st and 3rd extensor compartments with a 15 blade scalpel through skin and dermis. Littler scissors were used to spread down to the joint capsule avoiding dorsal radial sensory nerve. Using a 15 blade I made my incision in the capsule and again retracting capsular flaps to expose the trapezium. Mini C-arm was draped and brought into the field and location of the trapezium was confirmed. I proceeded with complete removal of the trapezium using a combination of McGlamry elevator and rongeur. Multiple views of fluoroscopy were used to verify this resection. Next I proceeded with making a longitudinal incision over the base of the 2nd metacarpal through skin and dermis with a 15 blade scalpel. Littler scissors were used to spread through subcutaneous tissue down to the metacarpal ulnar aspect. I made an incision and periosteum and then reflected this on the ulnar aspect. Next I proceeded with using the Arthrex mini C ring guide to place the variable gauged K-wire in a radial to ulnar direction from the base of the thumb metacarpal exiting the base of the ulnar side of the 2nd metacarpal. K-wire placement was verified and multiple views of fluoroscopy. The mini tight rope was then deployed in standard fashion. The button was seated to the 1st metacarpal as verified on fluoroscopy. Thumb reduction and distraction was appropriate and a provisionally tied down the button over the 2nd metacarpal. Under live fluoro there was full range of motion without impingement or subsidence on axial load. The button on the 2nd metacarpal was then fully secured. I irrigated the incisions with normal saline. 3-0 Vicryl was used to repair periosteum over the 2nd metacarpal button and dermis followed by 4-0 Monocryl. The thumb joint capsule was repaired with 3-0 Vicryl suture. 4-0 Monocryl was used for subcuticular closure. A dressing of Dermabond, 4x4, jabier, and a thumb spica splint was applied for patient safety, security, and comfort and secured with an sanya bandage after the tourniquet was let down noting the hand was warm and well perfused. The patient was then awaken from anesthesia and transferred to the recovery room in stable condition.? Complications - none EBL- 0cc Disposition - home in stable conditions Mike Milner PA-C was essential for positioning, retraction, fluoro, instrumentation, closure and dressing placement [facility] [place] Surgery - Charge Forward: Surgery Billing ([id number] for mike)
[2024-11-29] MEDS: LACTATED RINGERS 1,000 ML 30 ML IV CONT (08:45)
--- NOTE | 2024-11-29 09:34 | WPDANESEPPF ---
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 Patient Data Age: 69 Gender: F Height: 1.55 m Weight: 89.1 kg Last Vital Signs Temp 97.7 F 11/29/24 08:25 Pulse 64 11/29/24 08:25 Resp 16 11/29/24 08:25 BP 133/73 11/29/24 08:25 Pulse Ox 100 11/29/24 08:25 O2 Del Method Room Air 11/29/24 08:25 Allergies Allergy/AdvReac Type Severity Reaction Status Date / Time bee venom protein (honey bee) AdvReac Anaphylaxis Verified 11/29/24 08:32 Home Medications ?Medication ?Instructions ?Recorded ?Confirmed ?Type aspirin 81 mg tablet,delayed 81 mg PO QAM 01/06/21 11/29/24 History release (Adult Aspirin Regimen) epinephrine 0.3 mg/0.3 mL 0.3 mg (0.3 mL) IM ONCE PRN BEE 12/02/22 11/15/24 Rx injection, auto-injector (EpiPen STING #2 ea 2-Daryl) escitalopram oxalate 10 mg tablet 10 mg PO QAM #90 tabs 03/23/24 11/29/24 Rx fluticasone propionate 50 1 spray intranasal Q12H PRN 04/04/24 11/15/24 Rx mcg/actuation nasal allergies #16 grams spray,suspension atorvastatin 20 mg tablet 20 mg PO QAM #90 tabs 06/02/24 11/29/24 Rx bupropion HCl 300 mg 24 hr tablet, 300 mg PO QAM #90 tabs 08/13/24 11/29/24 Rx extended release omeprazole 40 mg capsule,delayed 40 mg PO QAM #90 caps 10/26/24 11/29/24 Rx release hydrocodone 5 mg-acetaminophen 325 1 tablet PO Q12H PRN pain #14 tabs 11/04/24 11/15/24 Rx mg tablet calcium 600 mg (as carbonate)-vit 1 tablet PO DAILY 11/15/24 11/29/24 History D3 20 mcg (800 unit) chewable tablet (Caltrate plus D) cholecalciferol (vitamin D3) 25 1,000 unit PO DAILY 11/15/24 11/29/24 History mcg (1,000 unit) capsule nabumetone 500 mg tablet 500 mg PO BID #60 tabs 11/28/24 11/29/24 Rx cephalexin 500 mg capsule 500 mg PO Q12H #14 caps 11/29/24 Rx hydrocodone 5 mg-acetaminophen 325 1 tablet PO Q6H PRN pain #12 tabs 11/29/24 Rx mg tablet Patient hx anesthesia problems: none Family hx anesthesia problems: none Results Review: All pre-operative results and documents have been reviewed as part of the pre-operative evaluation. [facility] Past Medical History Medical History Rotator cuff tear History of stress test Stung by yellow jacket Obesity (BMI 30-39.9) Ankle fracture GERD without esophagitis Lumbar radiculopathy Mixed hyperlipidemia Recurrent major depressive disorder, in partial remission Vitamin B deficiency Surgical History Surgical History History of laryngoscopy (~05/02/20) Hx of tonsillectomy History of bilateral tubal ligation Family History Family History Other Family history of lung cancer Social History Social History Smoking packs per day: 2 Smoking cigarettes per day: 40.0 Years smoked: 8 Smoking pack-years: 16.00 Smoking status: Former smoker Tobacco type: cigarettes Second hand tobacco smoke exposure: No Smoking end date: 08/22/85 Additional smoking assessment comments: smoked 2 packs a day for 8 years then up to 4 packs a day in the end Alcohol intake: current Alcohol use details: STATES MAYBE 1 DRINK/MONTH Substance use: never Substance use type: does not use Do You Feel Safe in your Home?: Yes Lack of Transportation: No Lack of Food: Never True Current Housing: I Have Housing Concerned About Future Housing: No Difficulty Paying Gas/Electric Bills: No Difficulty Paying for Meds: No Currently Unemployed: No Education: High School Diploma/GED Difficulty w/ Childcare or Family Care: No Living arrangements: with family Additional living arrangements comments: [place] Occupation/Education: occupation Gender identity (if verbalized by the patient): Female Spiritual care concerns: No Agree to blood products: Yes Anes - Eval Final PreProcedure Day of Procedure 11/29/24 09:34 Patient weight: obese Lungs: normal air movement Airway: Mallampati scale class II Neurological: alert and oriented Last oral intake: >/= 8 hours ASA classification: III Emergent: no Anesthetic plan: proceed Anesthesia type and monitoring: general LMA and standard monitoring Results Review: All pre-operative results and documents have been reviewed as part of the pre-operative evaluation. Hyperlipidemia, BMI 37. Informed Consent: The patient's anesthetic plan and its attendant risks and benefits were discussed with the patient/family/POA. Questions were solicited and answers provided to the satisfaction of the patient/family/POA.
[2024-11-29] MEDS: ceFAZolin 2 GM/D5W 50 ML 2 GM/50 ML BAG IVPB (09:49)
[2024-11-29] MEDS: LIDO 1%/EPINEPHRINE 1:100,000 50 ML VIAL 10 ML INFILTRATE (09:57)
[2024-11-29] MEDS: fentaNYL CITRATE INJ (*CRX) 100 MCG/2 ML VIAL 25 MCG IV PUSH ×2 (11:17→11:21)
[2024-11-29] MEDS: oxyCODONE HCL (*CRX) 5 MG TAB IR PO (11:57)
== END 2024-11-29 12:48 | disposition home or self-care (01) ==
PROVIDERS: PCP Family Medicine; Visit Provider Plastic Surgery
PROC: (CPT 25447; principal; 2024-11-29 10:15)
DX: M18.11 Unilateral primary osteoarthritis of first carpometacarpal joint, right hand (principal); E78.2 Mixed hyperlipidemia; E53.8 Deficiency of other specified B group vitamins; K21.9 Gastro-esophageal reflux disease without esophagitis; F32.4 Major depressive disorder, single episode, in partial remission; M54.16 Radiculopathy, lumbar region; E66.9 Obesity, unspecified; Z68.37 Body mass index [BMI] 37.0-37.9, adult; Z79.82 Long term (current) use of aspirin; Z79.891 Long term (current) use of opiate analgesic; Z98.890 Other specified postprocedural states; Z98.51 Tubal ligation status; Z87.891 Personal history of nicotine dependence; Z80.1 Family history of malignant neoplasm of trachea, bronchus and lung
CPT/HCPCS: 25447; 88304; 99199; A9270; C1713; J0690; J1100; J2003; J2004; J2405; J2704; J3010; J7120

== ENCOUNTER 2024-12-11 15:12 | Outpatient (CLI) | payer MEDICARE, SELFPAY ==
--- NOTE | ~2024-12-11 | XR_ITS ---
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 TECHNIQUE: 3 views of right hand were obtained. COMPARISON: Right hand radiograph 03/29/2024 FINDINGS: Trapezium is absent. There are radiopaque markers at first and second metacarpals from a mi ni-tightrope. No fracture. There is mild osteoarthritis of many of the metacarpophalangeal joints and interphalangeal joints. There is moderate osteoarthritis of third metacarpophalangeal joint, first i nterphalangeal joint, and second, fourth, and fifth distal interphalangeal joints. IMPRESSION: 1. Polyarticular osteoarthritis. 2. Right basal joint arthroplasty. Reviewed, dictated and finalized at location B.
--- OUTSIDE RECORDS SUMMARY | 2024-12-11 17:49 | XMS_ITS | Referral Summary ---
Author Organization [facility] [employer] Address [address] [place] [address] Care Team Providers Care Zinc Skimmer Name Role Phone Alexia Dewitt MD Primary Care Provider [phone] Source Comments [facility],non-owned Affiliates and Associated Physician Practices is amultiple site organization consisting of ambulatory clinics and hospital sitesin [place], [place], [place] and [place]. This disclosure is being madepursuant to the Care Everywhere program and may not contain all information available regarding this patient. Last updated 18.[facility] [employer] Allergies No known active allergies Medications * Be aware that medications may not be up to date on this document. Alwaysverify current medications with the patient. Medication Sig Dispensed Refills Start Date End Date Status omeprazole (PRILOSEC) 40 MG capsule Take 40 mg by mouth once daily 06/16/2020 Active fluticasone propionate (FLONASE) 50 MCG/ACT nasal spray Newborn 1 spray into each nostril 2 times [...] Comments Blood Pressure 135/70 11/14/2020 8:36 AM [facility] Pulse 65 11/14/2020 8:36 AM [facility] Temperature 36.8 C (98.2 F) 11/14/2020 8:36 AM [facility] SH[facility] Respiratory Rate - - Oxygen Saturation 98% 03/22/2018 3:22 PM CDT Inhaled Oxygen Concentration - - Weight 86.2 kg (190 lb) 11/14/2020 8:36 AM SPECIAL SHOP[facility] Height 157.5 cm (5' 2 ) 11/14/2020 8:36 AM [facility] SHOP[facility] Body Mass Index 34.75 11/14/2020 8:36 AM SPECIAL SHOPPER Plan of Treatment Not on file Care Teams Zinc Skimmer Relationship Specialty Start Date End Date Alexia Dewitt MD [address] [place], [place] [id number] PCP - General Family Medicine 03/22/18
--- OUTSIDE RECORDS SUMMARY | 2024-12-11 17:49 | XMS_ITS | Patient Health Summary ---
Author Organization [facility] Address [address] [place] [address] Care Team Providers Care Supervisor Shuttle Preparation Name Role Phone Alexia Dewitt MD Primary Care Provider [phone] Note from [facility],non-owned Affiliates and Associated Physician Practices is amultiple site organization consisting of ambulatory clinics and hospital sitesin [place], [place], [place] and [place]. This disclosure is being madepursuant to the Care Everywhere program and may not contain all information available regarding this patient. Last updated 18.[facility] Allergies No known active allergies Medications * Be aware that medications may not be up to date on this document. Alwaysverify current medications with the patient. * omeprazole (PRILOSEC) 40 MG capsule(Started 06/16/2020) Take 40 mg by mouth once daily * fluticasone propionate (FLONASE) 50 MCG/ACT nasal spray(Started 02/09/2020) [place] 1 spray into each nostril 2 times [...] Comments Blood Pressure 135/70 11/14/2020 8:36 AM [facility] Pulse 65 11/14/2020 8:36 AM [facility] Temperature 36.8 C (98.2 F) 11/14/2020 8:36 AM [facility] Respiratory Rate - - Oxygen Saturation 98% 03/22/2018 3:22 PM CDT Inhaled Oxygen Concentration - - Weight 86.2 kg (190 lb) 11/14/2020 8:36 AM [employer] Height 157.5 cm (5' 2 ) 11/14/2020 8:36 AM [facility] Body Mass Index 34.75 11/14/2020 8:36 AM [facility] [facility] Procedures * SD LARYNGOSCOPY,FLEX FIBER,DIAGNOSTIC(Performed 11/14/2020) Performed for Vocal cord bowing * SD LARYNGOSCOPY,INDIRECT,DX(Performed 08/08/2020) Performed for Vocal cord bowing * SARS-COV-2 (COVID-19) IN HOUSE(Performed 07/24/2020) Performed for Pre-op testing * SD LARYNGOSCOPY,FLEX FIBER,DIAGNOSTIC(Performed 07/04/2020) Performed for Hoarseness of voice Results * SD LARYNGOSCOPY,FLEX FIBER,DIAGNOSTIC (11/14/2020 8:56 AM [facility] [facility]) Betito Frias MD - 11/14/2020 8:56 AM [facility] [employer] Betito Townsend MD 11/14/2020 9:07 AM Procedure Note Endoscopy Endoscopy Type: Laryngoscopy without stroboscopy 36150 Endoscope: Flexible 4mm Scope Anesthesia: Lidocaine 2% [...] Townsend MD PROCEDURE/MINOR SURG ICAL ORDERABLES * SD LARYNGOSCOPY,INDIRECT,DX (08/08/2020 10:57 AM [facility] [employer] [facility]) Fatmata Adams - 08/08/2020 10:57 AM [employer] Fatmata Carlisle 08/08/2020 12:07 PM See procedure note in the progress note from this date. Betito Townsend MD PROCEDURE/MINOR SURG ICAL ORDERABLES * SARS-COV-2 (COVID-19) PRE-SURGICAL/PROCEDURE (07/24/2020 12:43 PM CDT) COVID-19 PCR Not detected Not detected 07/24/2020 7:26 PM CDT [facility] Microbiology SPECIMEN FROM NASOPHARYNGEAL STRUCTURE / Unknown Collection / Unknown 07/24/2020 12:43 PM CDT 07/24/2020 12:43 PM CDT Jcarlos [facility] - 07/24/2020 7:26 PM CDT This nucleic acid amplification assay performance was validated by [facility]. This test has been authorized [...] Townsend MD LAB - MICROBIOLOGY O RDERABLES [facility] [address] [place], [place] [address], [facility] [phone] * SD LARYNGOSCOPY,FLEX FIBER,DIAGNOSTIC (07/04/2020 12:08 PM CDT) Narrative Fatmata Carlisle - 07/04/2020 12:08 PM CDT Fatmata Carlisle 07/04/2020 2:38 PM See procedure note in the progress note from this date. Betito Townsend MD PROCEDURE/MINOR SURG ICAL ORDERABLES Care Teams Supervisor Shuttle Preparation Relationship Specialty Start Date End Date Alexia Dewitt MD [address] [place] [address] PCP - General Family Medicine 03/22/18
--- OUTSIDE RECORDS SUMMARY | 2024-12-11 17:49 | XMS_ITS | Clinical Summary ---
Author Organization [facility] [employer] Address [address] [place] [address] Care Team Providers Care Conservator Artifacts Name Role Phone Alexia Dewitt MD Primary Care Provider [phone] Source Comments [facility],non-owned Affiliates and Associated Physician Practices is amultiple site organization consisting of ambulatory clinics and hospital sitesin [place], [place], [place] and [place]. This disclosure is being madepursuant to the Care Everywhere program and may not contain all information available regarding this patient. Last updated 18.[facility] [employer] Allergies No known active allergies Medications * Be aware that medications may not be up to date on this document. Alwaysverify current medications with the patient. Medication Sig Dispensed Refills Start Date End Date Status omeprazole (PRILOSEC) 40 MG capsule Take 40 mg by mouth once daily 06/16/2020 Active fluticasone propionate (FLONASE) 50 MCG/ACT nasal spray [place] 1 spray into each nostril 2 times [...] Comments Blood Pressure 135/70 11/14/2020 8:36 AM BAG [employer] Pulse 65 11/14/2020 8:36 AM [facility] Temperature 36.8 C (98.2 F) 11/14/2020 8:36 AM BAG TE[facility] Respiratory Rate - - Oxygen Saturation 98% 03/22/2018 3:22 PM CDT Inhaled Oxygen Concentration - - Weight 86.2 kg (190 lb) 11/14/2020 8:36 AM BAG TE[employer] Height 157.5 cm (5' 2 ) 11/14/2020 8:36 AM BAG TE[facility] Body Mass Index 34.75 11/14/2020 8:36 AM B[facility] Plan of Treatment Health Maintenance Due Date [...] INFLUENZA VACCINE (#1) 2024 DEPRESSION SCREENING 10/04/2024 MEDICARE AWV CALENDAR YEAR 2024 Respiratory Syncytial Virus (RSV) Vaccine Pt: or [...] age to complete this topic Care Teams Conservator Artifacts Relationship Specialty Start Date End Date Alexia Dewitt MD [address] [place] [address] PCP - General Family Medicine 03/22/18
== END 2024-12-11 15:13 | disposition home or self-care (01) ==
PROVIDERS: PCP Family Medicine; Visit Provider Physician Assistant Surgical
DX: M18.0 Bilateral primary osteoarthritis of first carpometacarpal joints (principal); Z96.691 Finger-joint replacement of right hand
CPT/HCPCS: 73130